=== PATIENT | male | born 1955 | race Caucasian/White ===

== ENCOUNTER 2018-10-07 15:38 | Inpatient (IN) | payer OTHER ==
[2018-10-07 17:52] VITALS: BMI 32.3
--- NOTE | 2018-10-07 19:45 | HP ---
CIWA Score Nausea/Vomitin Muscle Tremors: 4-Moderate,w/Arms Extend Anxiety: 2 Agitation: 3 Paroxysmal Sweats: 2 Orientation: 0-Oriented Tacttile Disturbances: 0-None Auditory Disturbances: 0-None Visual Disturbances: 0-None Headache: 0-None Present CIWA-Ar Total Score: 13 - Admission Criteria OASAS Guidelines: Admission for Medically Managed Detox: Requires at least one of the followin. CIWA greater than 12 2. Seizures within the past 24 hours 3. Delirium tremens within the past 24 hours 4. Hallucinations within the past 24 hours 5. Acute intervention needed for co occurring medical disorder 6. Acute intervention needed for co occurring psychiatric disorder 7. Severe withdrawal that cannot be handled at a lower level of care (continued vomiting, continued diarrhea, abnormal vital signs) requiring intravenous medication and/or fluids 8. Admission ROS [facility] Chief Complaint: Here for alcohol detox. Went to [facility] earlier today but could get admission and so came here for detox. 63 yo with h/o asthma, and ? cancer, ? CAD (does not know details) not taking any meds now. Drinking heavily for the last 3 years- alcohol- 2 pints/day, lachelle, no h/o seizures, no DT's 4 cigarettes/day denies other drug use DUR- no controlled meds Utox- neg, JOE- 0 Allergies/Adverse Reactions: Allergies Allergy/AdvReac Type Severity Reaction Status Date / Time No Known Allergies Allergy Verified 10/07/18 19:44 Exam Limitations: No Limitations - Ebola screening Have you traveled outside of the country in the last 21 days: No Have you had contact with anyone from an Ebola affected area: No Have you been sick,other than usual withdrawal symptoms: No Do you have a fever: No - Review of Systems Constitutional: No Symptoms Reported EENT: reports: No Symptoms Reported Respiratory: reports: No Symptoms reported Cardiac: reports: No Symptoms Reported GI: reports: No Symptoms Reported : reports: No Symptoms Reported Musculoskeletal: reports: No Symptoms Reported Integumentary: reports: No Symptoms Reported Neuro: reports: No Symptoms reported Endocrine: reports: No Symptoms Reported Hematology: reports: No Symptoms Reported Psychiatric: reports: No Sypmtoms Reported Other Systems: Reviewed and Negative Patient History - Patient Medical History Hx Asthma: Yes Hx Cancer: Yes (pt does not know details) Hx Cardiac Disorders: Yes (pt does not know details) Hx Hypertension: No Hx Seizures: No Hx Renal Disease (ESRD): No Hx Thyroid Disease: No Hx Human Immunodeficiency Virus (HIV): No Hx Hepatitis C: No Hx Depression: No Hx Suicide Attempt: No Hx Bipolar Disorder: No Hx Schizophrenia: No - Patient Surgical History Other Surgical History: hernia - PPD History Previous Implant?: Yes Documented Results: Negative w/o proof PPD to be Administered?: Yes - Smoking Cessation Smoking history: Current every day smoker Have you smoked in the past 12 months: Yes Aproximately how many cigarettes per day: 4 Hx Chewing Tobacco Use: Yes Initiated information on smoking cessation: Yes 'Breaking Loose' booklet given: 10/07/18 - Substance & Tx. History Hx Alcohol Use: Yes Hx Substance Use: No Substance Use Type: Alcohol Hx Substance Use Treatment: Yes Family Disease History - Family Disease History Family History: Denies (pt does not know) Admission Physical Exam BHS - Vital Signs Vital Signs: Vital Signs - 24 hr 10/07/18 17:49 Temperature 99 F Pulse Rate 102 H Respiratory 18 Rate Blood Pressure 139/80 - Physical General Appearance: Yes: Appropriately Dressed HEENTM: Yes: Within Normal Limits Respiratory: Yes: Within Normal Limits, Lungs Clear Neck: Yes: Within Normal Limits Cardiology: Yes: Within Normal Limits, S1, S2 Abdominal: Yes: Non Tender, Organomegaly, Distended Back: Yes: Within Normal Limits Musculoskeletal: Yes: Within Normal Limits Extremities: Yes: Within Normal Limits Neurological: Yes: Within Normal Limits, tannery gummer II-XII NML intact Integumentary: Yes: Within Normal Limits Lymphatic: Yes: Within Normal Limits - Diagnostic (1) Alcohol use disorder Current Visit: Yes Status: Acute (2) Asthma Current Visit: Yes Status: Acute (3) Tobacco use disorder Current Visit: Yes Status: Acute BHS Breath Alcohol Content Breath Alcohol Content: 0 Urine Drug Screen - Results Drug Screen Negative: Yes
[2018-10-07] MEDS ORDERED: IBUPROFEN 400 MG TABLET (FP) PO PRN (19:53)
[2018-10-07] MEDS ORDERED: MENTHOL/PHENOL 1 EACH UD MM PRN (19:53)
[2018-10-07] MEDS ORDERED: LOPERAMIDE HCL 2 MG CAPSULE PO PRN (19:53)
[2018-10-07] MEDS ORDERED: guaiFENesin/D-METHORPHAN HB 10 ML UNIT-DOSE CUPS PO PRN (19:53)
[2018-10-07] MEDS ORDERED: MAGNESIUM CITRATE 300 ML BOTTLE PO PRN (19:53)
[2018-10-07] MEDS ORDERED: MAG HYDROX/AL HYDROX/SIMETH 30 ML UNIT-DOSE CUP PO PRN (19:53)
[2018-10-07] MEDS ORDERED: P-EPHED 60MG/TRIPROLIDI 2.5MG TABLET PO PRN (19:53)
[2018-10-07] MEDS ORDERED: ACETAMINOPHEN 325 MG TABLET (FP) PO PRN (19:53)
[2018-10-07] MEDS ORDERED: MAGNESIUM HYDROX 2400MG/30ML ORAL SUSPENSION 30 ML CUP PO PRN (19:53)
[2018-10-07] MEDS ORDERED: chlordiazePOXIDE HCL 25 MG CAPSULE PO ONE (19:55)
[2018-10-07] MEDS ORDERED: chlordiazePOXIDE HCL 25 MG CAPSULE PO PRN (19:55)
[2018-10-07] MEDS: chlordiazePOXIDE HCL 25 MG CAPSULE PO SCH (22:31)
[2018-10-07] MEDS: THIAMINE HCL 100 MG TABLET (FP) PO SCH (22:31)
[2018-10-08] MEDS: chlordiazePOXIDE HCL 25 MG CAPSULE PO SCH ×4 (05:53→22:01)
[2018-10-08] MEDS: PRENATAL VITAMINS W/ FOLIC ACID TABLET (FP) PO SCH (09:15)
[2018-10-08] MEDS ORDERED: NICOTINE 7 MG/24 HOURS TOPICAL PATCH TD SCH (10:00)
[2018-10-08 10:56] LABS: HEMATOCRIT 26.9 % (35.4-49); HEMOGLOBIN 8.1 GM/dL (11.7-16.9); MEAN CELL VOLUME 66.6 fl (80-96); MEAN PLT VOLUME 7.3 fl (7.5-11.1); PLATELET COUNT 347 K/MM3 (134-434); RBC 4.03 M/mm3 (4.00-5.60); RDW 20.1 % (11.9-15.9); WHITE BLOOD COUNT 4.1 K/mm3 (4.0-10.0)
[2018-10-08 11:01] LABS: ALBUMIN 3.7 g/dl (3.4-5.0); ALK PHOS 86 U/L (45-117); ANION GAP 7 MMOL/L (8-16); BILIRUBIN,TOTAL 0.3 mg/dL (0.2-1); BLOOD UREA NITROGEN 29 mg/dL (7-18); CALCIUM 8.5 mg/dL (8.5-10.1); CHLORIDE 103 mmol/L (98-107); CO2 29 mmol/L (21-32); CREATININE 1.6 mg/dL (0.55-1.3); GLUCOSE,RANDOM 113 mg/dL (74-106); POTASSIUM 4.9 mmol/L (3.5-5.1); SGOT/AST 21 U/L (15-37); SGPT/ALT 26 U/L (13-61); SODIUM 139 mmol/L (136-145); TOT PROT 6.6 g/dl (6.4-8.2)
[2018-10-08] MEDS ORDERED: ONDANSETRON *ODT* 4 MG TABLET SL ONE (11:47)
[2018-10-08 12:29] LABS: URINE APPEARANCE CLEAR; URINE BILIRUBIN NEGATIVE (<2.0 mg/dL); URINE COLOR STRAW; URINE GLUCOSE (UA) NEGATIVE (NEGATIVE); URINE KETONE NEGATIVE (NEGATIVE); URINE LEUK ESTERASE NEGATIVE (NEGATIVE); URINE NITRITE NEGATIVE (NEGATIVE); URINE PROTEIN NEGATIVE (NEGATIVE); URINE UROBILINOGEN NEGATIVE mg/dL (0.2-1.0)
--- NOTE | 2018-10-08 12:44 | PN ---
S CIWA - CIWA Score Nausea/Vomitin-Mild Nausea/No Vomiting Muscle Tremors: 4-Moderate,w/Arms Extend Anxiety: 3 Agitation: 2 Paroxysmal Sweats: 1-Minimal Palms Moist Orientation: 0-Oriented Tacttile Disturbances: 0-None Auditory Disturbances: 0-None Visual Disturbances: 0-None Headache: 1-Very Mild CIWA-Ar Total Score: 12 S Progress Note (SOAP) Subjective: patient attended group in the day room "emotional" towards the topic was tearful and vomited zofrain x 1 4 mg patient is doing well ambulate with cane steady gait denies suicidal ideation reported taking psychotropic medication can not remember when was last dose taking psychiatric referral tremor sweating Objective: 10/08/18 12:47 Vital Signs Temperature 96.5 F L 10/08/18 09:07 Pulse Rate 102 H 10/08/18 09:07 Respiratory Rate 18 10/08/18 09:07 Blood Pressure 147/62 10/08/18 09:07 O2 Sat by Pulse Oximetry (%) Laboratory Last Values WBC 4.1 K/mm3 (4.0-10.0) 10/08/18 07:00 RBC 4.03 M/mm3 (4.00-5.60) 10/08/18 07:00 Hgb 8.1 GM/dL (11.7-16.9) L 10/08/18 07:00 Hct 26.9 % (35.4-49) L 10/08/18 07:00 MCV 66.6 fl (80-96) L 10/08/18 07:00 MCH 20.0 pg (25.7-33.7) L 10/08/18 07:00 MCHC 30.0 g/dl (32.0-35.9) L 10/08/18 07:00 RDW 20.1 % (11.9-15.9) H 10/08/18 07:00 Plt Count 347 K/MM3 (134-434) 10/08/18 07:00 MPV 7.3 fl (7.5-11.1) L 10/08/18 07:00 Sodium 139 mmol/L (136-145) 10/08/18 07:00 Potassium 4.9 mmol/L (3.5-5.1) 10/08/18 07:00 Chloride 103 mmol/L (98-107) 10/08/18 07:00 Carbon Dioxide 29 mmol/L (21-32) 10/08/18 07:00 Anion Gap 7 MMOL/L (8-16) L 10/08/18 07:00 BUN 29 mg/dL (7-18) H 10/08/18 07:00 Creatinine 1.6 mg/dL (0.55-1.3) H 10/08/18 07:00 Creat Clearance w eGFR 43.87 (>60) 10/08/18 07:00 Random Glucose 113 mg/dL (74-106) H 10/08/18 07:00 Calcium 8.5 mg/dL (8.5-10.1) 10/08/18 07:00 Total Bilirubin 0.3 mg/dL (0.2-1) 10/08/18 07:00 AST 21 U/L (15-37) 10/08/18 07:00 ALT 26 U/L (13-61) 10/08/18 07:00 Alkaline Phosphatase 86 U/L (45-117) 10/08/18 07:00 Total Protein 6.6 g/dl (6.4-8.2) 10/08/18 07:00 Albumin 3.7 g/dl (3.4-5.0) 10/08/18 07:00 Urine Color Straw 10/08/18 08:00 Urine Appearance Clear 10/08/18 08:00 Urine pH 8.0 (5.0-8.0) 10/08/18 08:00 Ur Specific [place] 1.014 (1.010-1.035) 10/08/18 08:00 Urine Protein Negative (NEGATIVE) 10/08/18 08:00 Urine Glucose (UA) Negative (NEGATIVE) 10/08/18 08:00 Urine Ketones Negative (NEGATIVE) 10/08/18 08:00 Urine Blood Negative (NEGATIVE) 10/08/18 08:00 Urine Nitrite Negative (NEGATIVE) 10/08/18 08:00 Urine Bilirubin Negative (<2.0 mg/dL) 10/08/18 08:00 Urine Urobilinogen Negative mg/dL (0.2-1.0) 10/08/18 08:00 Ur Leukocyte Esterase Negative (NEGATIVE) 10/08/18 08:00 RPR Titer Nonreactive (NONREACTIVE) 10/08/18 07:00 lab noted repeat camp Assessment: 10/08/18 12:49 withdrawal sx depression Plan: continue detox
[2018-10-08] MEDS ORDERED: NICOTINE POLACRILEX 2 MG GUM BUC PRN (13:32)
[2018-10-08] MEDS ORDERED: NICOTINE 7 MG/24 HOURS TOPICAL PATCH TD PRN (13:33)
--- NOTE | 2018-10-08 15:51 | EKG ---
Test Reason : Blood Pressure : / mmHG Vent. Rate : 095 BPM Atrial Rate : 095 BPM P-R Int : 112 ms QRS Dur : 088 ms QT Int : 340 ms P-R-T Axes : 074 041 006 degrees QTc Int : 427 ms NORMAL SINUS RHYTHM WITH SINUS ARRHYTHMIA NONSPECIFIC ST ABNORMALITY ABNORMAL ECG NO PREVIOUS ECGS AVAILABLE Confirmed by Jovanny Rosario ([id number]) on 10/08/2018 3:51:26 PM Referred By: Confirmed By:Jovanny Rosario
[2018-10-08] MEDS: THIAMINE HCL 100 MG TABLET (FP) PO SCH (22:01)
[2018-10-08] MEDS: MELATONIN 5 MG TABLETS PO PRN (22:01)
[2018-10-09] MEDS: chlordiazePOXIDE HCL 25 MG CAPSULE PO SCH ×3 (05:36→16:57)
[2018-10-09] MEDS: PRENATAL VITAMINS W/ FOLIC ACID TABLET (FP) PO SCH (10:11)
[2018-10-09 10:17] LABS: ALBUMIN 3.8 g/dl (3.4-5.0); ALK PHOS 91 U/L (45-117); ANION GAP 7 MMOL/L (8-16); BILIRUBIN,TOTAL 0.2 mg/dL (0.2-1); BLOOD UREA NITROGEN 31 mg/dL (7-18); CALCIUM 8.5 mg/dL (8.5-10.1); CHLORIDE 109 mmol/L (98-107); CO2 28 mmol/L (21-32); CREATININE 1.6 mg/dL (0.55-1.3); GLUCOSE,RANDOM 70 mg/dL (74-106); POTASSIUM 4.6 mmol/L (3.5-5.1); SGOT/AST 16 U/L (15-37); SGPT/ALT 24 U/L (13-61); SODIUM 144 mmol/L (136-145); TOT PROT 6.9 g/dl (6.4-8.2)
--- NOTE | 2018-10-09 11:08 | PN ---
S CIWA - CIWA Score Nausea/Vomitin-No Nausea/No Vomiting Muscle Tremors: 3 Anxiety: 2 Agitation: 1-Slight > Activity Paroxysmal Sweats: 1-Minimal Palms Moist Orientation: 0-Oriented Tacttile Disturbances: 0-None Auditory Disturbances: 0-None Visual Disturbances: 0-None Headache: 1-Very Mild CIWA-Ar Total Score: 8 S Progress Note (SOAP) Subjective: tremor sweating restlessness able to discuss aftercare with staff Objective: 10/09/18 11:07 Vital Signs Temperature 98.2 F 10/09/18 09:31 Pulse Rate 106 H 10/09/18 09:31 Respiratory Rate 18 10/09/18 09:31 Blood Pressure 115/71 10/09/18 09:31 O2 Sat by Pulse Oximetry (%) Laboratory Last Values WBC 4.1 K/mm3 (4.0-10.0) 10/08/18 07:00 RBC 4.03 M/mm3 (4.00-5.60) 10/08/18 07:00 Hgb 8.1 GM/dL (11.7-16.9) L 10/08/18 07:00 Hct 26.9 % (35.4-49) L 10/08/18 07:00 MCV 66.6 fl (80-96) L 10/08/18 07:00 MCH 20.0 pg (25.7-33.7) L 10/08/18 07:00 MCHC 30.0 g/dl (32.0-35.9) L 10/08/18 07:00 RDW 20.1 % (11.9-15.9) H 10/08/18 07:00 Plt Count 347 K/MM3 (134-434) 10/08/18 07:00 MPV 7.3 fl (7.5-11.1) L 10/08/18 07:00 Sodium 144 mmol/L (136-145) 10/09/18 07:00 Potassium 4.6 mmol/L (3.5-5.1) 10/09/18 07:00 Chloride 109 mmol/L (98-107) H 10/09/18 07:00 Carbon Dioxide 28 mmol/L (21-32) 10/09/18 07:00 Anion Gap 7 MMOL/L (8-16) L 10/09/18 07:00 BUN 31 mg/dL (7-18) H 10/09/18 07:00 Creatinine 1.6 mg/dL (0.55-1.3) H 10/09/18 07:00 Creat Clearance w eGFR 43.87 (>60) 10/09/18 07:00 Random Glucose 70 mg/dL (74-106) L 10/09/18 07:00 Calcium 8.5 mg/dL (8.5-10.1) 10/09/18 07:00 Total Bilirubin 0.2 mg/dL (0.2-1) 10/09/18 07:00 AST 16 U/L (15-37) 10/09/18 07:00 ALT 24 U/L (13-61) 10/09/18 07:00 Alkaline Phosphatase 91 U/L (45-117) 10/09/18 07:00 Total Protein 6.9 g/dl (6.4-8.2) 10/09/18 07:00 Albumin 3.8 g/dl (3.4-5.0) 10/09/18 07:00 Urine Color Straw 10/08/18 08:00 Urine Appearance Clear 10/08/18 08:00 Urine pH 8.0 (5.0-8.0) 10/08/18 08:00 Ur Specific [place] 1.014 (1.010-1.035) 10/08/18 08:00 Urine Protein Negative (NEGATIVE) 10/08/18 08:00 Urine Glucose (UA) Negative (NEGATIVE) 10/08/18 08:00 Urine Ketones Negative (NEGATIVE) 10/08/18 08:00 Urine Blood Negative (NEGATIVE) 10/08/18 08:00 Urine Nitrite Negative (NEGATIVE) 10/08/18 08:00 Urine Bilirubin Negative (<2.0 mg/dL) 10/08/18 08:00 Urine Urobilinogen Negative mg/dL (0.2-1.0) 10/08/18 08:00 Ur Leukocyte Esterase Negative (NEGATIVE) 10/08/18 08:00 RPR Titer Nonreactive (NONREACTIVE) 10/08/18 07:00 10/09/18 11:27 lab noted Assessment: 10/09/18 11:30 withdrawal sx Plan: continue detox
[2018-10-09] MEDS ORDERED: ONDANSETRON *ODT* 4 MG TABLET SL ONE (14:03)
--- NOTE | 2018-10-09 14:19 | CONSULT ---
[facility] Psychiatric Consult - Data Date of interview: 10/09/18 Admission source: [facility] Identifying data: This is 63 years old H single childless male residing alone, supported by SSD admitted to [address] [place] [address] for Alcohol dependence. Substance Abuse History: Reports drinking since very young age([age] y6o),heavy drinking since about 3 years ago 2 pints daily. Medical History: Significant for BA,CAD,Stomach cancer(?). Psychiatric History: patient reports first contact with psychiatrist about 5 years ago when he was admitted to [facility] to address severe depression,anxiety,sleeping difficulties.Patient was dx with Depressive disorder and palced on medications.he reports more psychiatric hospitalizations ,most recent was in March 2018 for severe depression,anxiety.He sees psychiatrist in [facility] abuse [facility] mental health office on a monthly basis,currently is on Benadryl 50 mg po hs. Physical/Sexual Abuse/Trauma History: Patient is not willing to discuss. Mental Status Exam - Mental Status Exam Alert and Oriented to: Time, Place, Person Cognitive Function: Grossly Intact Patient Appearance: Well Groomed Mood: Anxious, Irritable Affect: Mood Congruent, Labile Patient Behavior: Cooperative Speech Pattern: Clear Voice Loudness: Normal Thought Process: Goal Oriented Thought Disorder: Not Present Hallucinations: Denies Suicidal Ideation: Denies Homicidal Ideation: Denies Insight/Judgement: Fair Sleep: Fair Appetite: Good Muscle strength/Tone: Normal Gait/Station: Normal Psychiatric Findings - Problem List (Tr[place] 1, 2,3) (1) Alcohol use disorder Current Visit: Yes Status: Chronic (2) Asthma Current Visit: Yes Status: Chronic (3) Tobacco use disorder Current Visit: Yes Status: Chronic - Initial Treatment Plan Initial Treatment Plan: Benadryl 50 mg po hs prn for insomnia.
--- NOTE | 2018-10-09 14:55 | EKG ---
Test Reason : Blood Pressure : / mmHG Vent. Rate : 086 BPM Atrial Rate : 086 BPM P-R Int : 118 ms QRS Dur : 084 ms QT Int : 350 ms P-R-T Axes : 069 025 -02 degrees QTc Int : 418 ms SINUS RHYTHM WITH PREMATURE SUPRAVENTRICULAR COMPLEXES OTHERWISE NORMAL ECG WHEN COMPARED WITH ECG OF 07-OCT-2018 23:30, PREMATURE SUPRAVENTRICULAR COMPLEXES ARE NOW PRESENT Confirmed by MARY FLOYD, GALILEA ([id number]) on 10/09/2018 2:54:59 PM Referred By: Confirmed By:GALILEA HERNANDEZ MD
[2018-10-09] MEDS: THIAMINE HCL 100 MG TABLET (FP) PO SCH (21:36)
[2018-10-09] MEDS: MELATONIN 5 MG TABLETS PO PRN (21:39)
[2018-10-09] MEDS: ALBUTEROL SO4 8 GM HFA INHALER IH SCH (21:39)
[2018-10-09] MEDS: chlordiazePOXIDE 5 MG CAPSULE PO SCH (22:16)
[2018-10-10] MEDS: chlordiazePOXIDE 5 MG CAPSULE PO SCH ×3 (05:25→17:14)
[2018-10-10] MEDS: PRENATAL VITAMINS W/ FOLIC ACID TABLET (FP) PO SCH (10:08)
[2018-10-10] MEDS: ALBUTEROL SO4 8 GM HFA INHALER IH SCH ×2 (10:08→21:45)
--- NOTE | 2018-10-10 11:47 | PN ---
BHS Progress Note (SOAP) Subjective: feeling better less sweating mild tremor sleep better at night Objective: 10/10/18 11:46 Vital Signs Temperature 96.9 F L 10/10/18 09:14 Pulse Rate 102 H 10/10/18 09:14 Respiratory Rate 18 10/10/18 09:14 Blood Pressure 139/74 10/10/18 09:14 O2 Sat by Pulse Oximetry (%) Laboratory Last Values WBC 4.1 K/mm3 (4.0-10.0) 10/08/18 07:00 RBC 4.03 M/mm3 (4.00-5.60) 10/08/18 07:00 Hgb 8.1 GM/dL (11.7-16.9) L 10/08/18 07:00 Hct 26.9 % (35.4-49) L 10/08/18 07:00 MCV 66.6 fl (80-96) L 10/08/18 07:00 MCH 20.0 pg (25.7-33.7) L 10/08/18 07:00 MCHC 30.0 g/dl (32.0-35.9) L 10/08/18 07:00 RDW 20.1 % (11.9-15.9) H 10/08/18 07:00 Plt Count 347 K/MM3 (134-434) 10/08/18 07:00 MPV 7.3 fl (7.5-11.1) L 10/08/18 07:00 Sodium 144 mmol/L (136-145) 10/09/18 07:00 Potassium 4.6 mmol/L (3.5-5.1) 10/09/18 07:00 Chloride 109 mmol/L (98-107) H 10/09/18 07:00 Carbon Dioxide 28 mmol/L (21-32) 10/09/18 07:00 Anion Gap 7 MMOL/L (8-16) L 10/09/18 07:00 BUN 31 mg/dL (7-18) H 10/09/18 07:00 Creatinine 1.6 mg/dL (0.55-1.3) H 10/09/18 07:00 Creat Clearance w eGFR 43.87 (>60) 10/09/18 07:00 Random Glucose 70 mg/dL (74-106) L 10/09/18 07:00 Calcium 8.5 mg/dL (8.5-10.1) 10/09/18 07:00 Total Bilirubin 0.2 mg/dL (0.2-1) 10/09/18 07:00 AST 16 U/L (15-37) 10/09/18 07:00 ALT 24 U/L (13-61) 10/09/18 07:00 Alkaline Phosphatase 91 U/L (45-117) 10/09/18 07:00 Total Protein 6.9 g/dl (6.4-8.2) 10/09/18 07:00 Albumin 3.8 g/dl (3.4-5.0) 10/09/18 07:00 Urine Color Straw 10/08/18 08:00 Urine Appearance Clear 10/08/18 08:00 Urine pH 8.0 (5.0-8.0) 10/08/18 08:00 Ur Specific [place] 1.014 (1.010-1.035) 10/08/18 08:00 Urine Protein Negative (NEGATIVE) 10/08/18 08:00 Urine Glucose (UA) Negative (NEGATIVE) 10/08/18 08:00 Urine Ketones Negative (NEGATIVE) 10/08/18 08:00 Urine Blood Negative (NEGATIVE) 10/08/18 08:00 Urine Nitrite Negative (NEGATIVE) 10/08/18 08:00 Urine Bilirubin Negative (<2.0 mg/dL) 10/08/18 08:00 Urine Urobilinogen Negative mg/dL (0.2-1.0) 10/08/18 08:00 Ur Leukocyte Esterase Negative (NEGATIVE) 10/08/18 08:00 RPR Titer Nonreactive (NONREACTIVE) 10/08/18 07:00 lab noted Assessment: 10/10/18 11:47 mild withdrawal sx Plan: continue detox
[2018-10-10] MEDS ORDERED: TRIMETHOBENZAMIDE HCL 300 MG CAPSULE PO PRN (19:16)
[2018-10-10] MEDS ORDERED: TRIMETHOBENZAMIDE HCL 200MG/2ML INJ IM ONE (19:30)
[2018-10-10] MEDS: THIAMINE HCL 100 MG TABLET (FP) PO SCH (21:45)
[2018-10-10] MEDS: chlordiazePOXIDE HCL 10 MG CAPSULE PO SCH (22:01)
[2018-10-11] MEDS: chlordiazePOXIDE HCL 10 MG CAPSULE PO SCH (05:33)
[2018-10-11 06:29] VITALS: BP 119/71; PULSE 88; TEMP 97.9
--- NOTE | 2018-10-11 10:23 | PN ---
BHS Progress Note (SOAP) Subjective: i'm better Objective: 10/11/18 10:19 Vital Signs Temperature 97.9 F 10/11/18 06:29 Pulse Rate 88 10/11/18 06:29 Respiratory Rate 16 10/11/18 06:29 Blood Pressure 119/71 10/11/18 06:29 O2 Sat by Pulse Oximetry (%) Laboratory Tests 10/08/18 10/08/18 10/08/18 07:00 07:00 07:00 WBC 4.1 RBC 4.03 Hgb 8.1 L Hct 26.9 L MCV 66.6 L MCH 20.0 L MCHC 30.0 L RDW 20.1 H Plt Count 347 MPV 7.3 L Sodium 139 Potassium 4.9 Chloride 103 Carbon Dioxide 29 Anion Gap 7 L BUN 29 H Creatinine 1.6 H Creat Clearance w eGFR 43.87 Random Glucose 113 H Calcium 8.5 Total Bilirubin 0.3 AST 21 ALT 26 Alkaline Phosphatase 86 Total Protein 6.6 Albumin 3.7 Urine Color Urine Appearance Urine pH Ur Specific [place] Urine Protein Urine Glucose (UA) Urine Ketones Urine Blood Urine Nitrite Urine Bilirubin Urine Urobilinogen Ur Leukocyte Esterase RPR Titer Nonreactive 10/08/18 10/09/18 08:00 07:00 WBC RBC Hgb Hct MCV MCH MCHC RDW Plt Count MPV Sodium 144 Potassium 4.6 Chloride 109 H Carbon Dioxide 28 Anion Gap 7 L BUN 31 H Creatinine 1.6 H Creat Clearance w eGFR 43.87 Random Glucose 70 L Calcium 8.5 Total Bilirubin 0.2 AST 16 ALT 24 Alkaline Phosphatase 91 Total Protein 6.9 Albumin 3.8 Urine Color Straw Urine Appearance Clear Urine pH 8.0 Ur Specific [place] 1.014 Urine Protein Negative Urine Glucose (UA) Negative Urine Ketones Negative Urine Blood Negative Urine Nitrite Negative Urine Bilirubin Negative Urine Urobilinogen Negative Ur Leukocyte Esterase Negative RPR Titer pt aox3 in nad ambulating Assessment: 10/11/18 10:20 detox completed Plan: detox completed
--- NOTE | 2018-10-11 10:25 | DS ---
[facility] Detox Discharge Summary Admission Date: 10/07/18 Discharge Date: 10/11/18 - History Present History: Alcohol Dependence - Physical Exam Results Vital Signs: Vital Signs Temperature 97.9 F 10/11/18 06:29 Pulse Rate 88 10/11/18 06:29 Respiratory Rate 16 10/11/18 06:29 Blood Pressure 119/71 10/11/18 06:29 O2 Sat by Pulse Oximetry (%) - Treatment Hospital Course: Detox Protocol Followed, Detoxed Safely, Responded well, Discharged Condition Good - Medication Discharge Medications: Ambulatory Orders Albuterol Sulfate Inhaler - [Ventolin HFA Inhaler -] 1 puff IH BID #1 inhaler - Diagnosis (1) Alcohol use disorder Current Visit: Yes Status: Chronic (2) Asthma Current Visit: Yes Status: Chronic Qualifiers: Asthma severity: mild (3) Tobacco use disorder Current Visit: Yes Status: Chronic - AMA Did Patient Leave Against Medical Advice: No
== END 2018-10-11 08:42 | disposition home or self-care (01) | DRG 897 ==
LOC: YASAS 15:38 → Y3N 21:16
PROVIDERS: ADMIT Neuromusculoskeletal Medicine & OMM; ATTEND Neuromusculoskeletal Medicine & OMM
PROC: HZ2ZZZZ Detoxification Services for Substance Abuse Treatment (ICD-10-PCS; principal; 2018-10-07)
DX: F10.230 Alcohol dependence with withdrawal, uncomplicated (principal); F17.210 Nicotine dependence, cigarettes, uncomplicated; F19.24 Other psychoactive substance dependence with psychoactive substance-induced mood disorder; F32.9 Major depressive disorder, single episode, unspecified; J45.909 Unspecified asthma, uncomplicated
CPT/HCPCS: 36415; 80053; 81003; 85027; 86593; 93005; 93010; Q0162

== ENCOUNTER 2019-01-13 13:28 | Inpatient (IN) | payer OTHER ==
[2019-01-13 14:58] VITALS: BMI 31.9
--- NOTE | 2019-01-13 15:35 | HP ---
CIWA Score Nausea/Vomitin-Mild Nausea/No Vomiting Muscle Tremors: 3 Anxiety: 4-Mod. Anxious/Guarded Agitation: 3 Paroxysmal Sweats: 1-Minimal Palms Moist Orientation: 3-Disoriented Date>2 days Tacttile Disturbances: 0-None Auditory Disturbances: 0-None Visual Disturbances: 0-None Headache: 0-None Present CIWA-Ar Total Score: 15 - Admission Criteria OASAS Guidelines: Admission for Medically Managed Detox: Requires at least one of the followin. CIWA greater than 12 2. Seizures within the past 24 hours 3. Delirium tremens within the past 24 hours 4. Hallucinations within the past 24 hours 5. Acute intervention needed for co occurring medical disorder 6. Acute intervention needed for co occurring psychiatric disorder 7. Severe withdrawal that cannot be handled at a lower level of care (continued vomiting, continued diarrhea, abnormal vital signs) requiring intravenous medication and/or fluids 8. Patient presents the following: CIWA greater than 12 Admission Criteria Met: Admission criteria met Admission ROS S - HPI Chief Complaint: alcohol detox Allergies/Adverse Reactions: Allergies Allergy/AdvReac Type Severity Reaction Status Date / Time No Known Allergies Allergy Verified 01/13/19 14:46 History of Present Illness: 63 years old male seeks alcohol detox denies using methadone "cigarette" from street medical history of hypertension asthma and smoke 4-5 cigarettes per day Exam Limitations: No Limitations - Ebola screening Have you traveled outside of the country in the last 21 days: No Have you had contact with anyone from an Ebola affected area: No - Review of Systems Constitutional: Night Sweats, Weight Stable EENT: reports: No Symptoms Reported Respiratory: reports: SOB with Exertion Cardiac: reports: No Symptoms Reported GI: reports: Nausea, Poor Fluid Intake, Indigestion : reports: No Symptoms Reported Musculoskeletal: reports: Back Pain (chronic back pain) Integumentary: reports: No Symptoms Reported Neuro: reports: Tremors Endocrine: reports: No Symptoms Reported Hematology: reports: No Symptoms Reported Psychiatric: reports: Judgement Intact, Mood/Affect Appropiate, Disorientated ( to time of the date) Other Systems: Reviewed and Negative Patient History - Patient Medical History Hx Anemia: No Hx Asthma: Yes Hx Chronic Obstructive Pulmonary Disease (COPD): No Hx Cancer: Yes (pt does not know details) Hx Cardiac Disorders: Yes (pt does not know details) Hx Congestive Heart Failure: No Hx Hypertension: No Hx Hypercholesterolemia: No Hx Pacemaker: No HX Cerebrovascular Accident: No Hx Seizures: No Hx Dementia: No Hx Diabetes: No Hx Gastrointestinal Disorders: No Hx Liver Disease: No Hx Genitourinary Disorders: No Hx Sexually Transmitted Disorders: No Hx Renal Disease (ESRD): No Hx Thyroid Disease: No Hx Human Immunodeficiency Virus (HIV): No Hx Hepatitis C: No Hx Depression: No Hx Suicide Attempt: No Hx Bipolar Disorder: No Hx Schizophrenia: No - Patient Surgical History Past Surgical History: No Hx Neurologic Surgery: No Hx Cataract Extraction: No Hx Cardiac Surgery: No Hx Lung Surgery: No Hx Breast Surgery: No Hx Breast Biopsy: No Hx Abdominal Surgery: No Hx Appendectomy: No Hx Cholecystectomy: No Hx Genitourinary Surgery: No Hx Orthopedic Surgery: No Other Surgical History: hernia 2013 Anesthesia Reaction: No - PPD History Date: 10/09/18 - Smoking Cessation Smoking history: Current every day smoker Have you smoked in the past 12 months: Yes Aproximately how many cigarettes per day: 4 Hx Chewing Tobacco Use: Yes Initiated information on smoking cessation: Yes 'Breaking Loose' booklet given: 01/13/19 - Substance & Tx. History Hx Alcohol Use: Yes Hx Substance Use: No Substance Use Type: Alcohol Hx Substance Use Treatment: Yes (10/2018 [facility] - Substances abused Alcohol Substance route: Oral Frequency: Daily Amount used: 1 [employer] [place] Age of first use: 25 Date of last use: 01/13/19 Family Disease History - Family Disease History Family Disease History: Other: Grandparent (), Father (no contact), Mother () Admission Physical Exam S - Vital Signs Vital Signs: Vital Signs - 24 hr 01/13/19 01/13/19 14:49 15:24 Temperature 98.1 F 98.1 F Pulse Rate 79 79 Respiratory 20 20 Rate Blood Pressure 154/81 154/81 - Physical General Appearance: Yes: Nourished, Moderate Distress, Tremorous, Irritable, Sweating, Anxious HEENTM: Yes: Hearing grossly Normal, Normal ENT Inspection, Normocephalic, Other (shortness of breathe) Respiratory: Yes: Decreased Breath Sounds (right and lower lower lobs), Wheezing , Hyperresonant Neck: Yes: Supple, Trachea in good position Breast: Yes: Breasts Symetrical, No Discharge, No masses Cardiology: Yes: Regular Rhythm, S1, S2 Abdominal: Yes: Non Tender, Soft Genitourinary: Yes: Within Normal Limits Back: Yes: Normal Inspection, Muscle Spasm (chronic back pain) Musculoskeletal: Yes: Gait Steady, Back pain Extremities: Yes: Normal Inspection, Non-Tender, Tremors Neurological: Yes: Alert, Normal Mood/Affect, Normal Response Integumentary: Yes: Warm Lymphatic: Yes: Within Normal Limits - Diagnostic (1) Nicotine dependence Current Visit: Yes Status: Acute Qualifiers: Nicotine product type: cigarettes Substance use status: in withdrawal Qualified Code(s): F17.213 - Nicotine dependence, cigarettes, with withdrawal (2) Alcohol dependence with uncomplicated withdrawal Current Visit: Yes Status: Acute (3) COPD (chronic obstructive pulmonary disease) Current Visit: Yes Status: Chronic Qualifiers: COPD type: emphysema Emphysema type: panlobular Qualified Code(s): J43.1 - Panlobular emphysema (4) Substance induced mood disorder Current Visit: Yes Status: Suspected (5) Asthma Current Visit: Yes Status: Chronic Qualifiers: Asthma severity: mild Asthma persistence: intermittent Asthma complication type: with status asthmaticus Qualified Code(s): J45.22 - Mild intermittent asthma with status asthmaticus Cleared for Admission S - Detox or Rehab S Level of Care: Medically Supervised Detox Regimen/Protocol: Librium Claeared for Rehab Admission: No Breathalyzer - Breathalyzer Breathalyzer: 0 Urine Drug Screen - Test Device Lot number: [id number] Expiration date: 08/09/20 - Control Is test valid?: Yes - Results Drug screen NEGATIVE: No Urine drug screen results: MTD-Methadone Inpatient Rehab Admission - Rehab Decision to Admit Inpatient rehab admission?: No - Initial Determination Are CD services needed?: No Free of communicable disease: No Not in need of hospitalization: No - Rehab Admission Criteria Previous failed treatment: No Poor recovery environment: No Comorbidities: No Lacks judgement: No Patient is meeting Inpatient Rehab admission criteria:: No
[2019-01-13] MEDS ORDERED: IBUPROFEN 400 MG TABLET (FP) PO PRN (15:43)
[2019-01-13] MEDS ORDERED: chlordiazePOXIDE HCL 25 MG CAPSULE PO PRN (15:43)
[2019-01-13] MEDS ORDERED: NICOTINE 14 MG/24 HOURS TOPICAL PATCH TD PRN (15:43)
[2019-01-13] MEDS ORDERED: MAGNESIUM CITRATE 300 ML BOTTLE PO PRN (15:43)
[2019-01-13] MEDS ORDERED: hydrOXYzine PAMOATE 25 MG CAPSULE (FP) PO PRN (15:43)
[2019-01-13] MEDS ORDERED: MENTHOL/PHENOL 1 EACH UD MM PRN (15:43)
[2019-01-13] MEDS ORDERED: NICOTINE POLACRILEX 2 MG GUM BUC PRN (15:43)
[2019-01-13] MEDS ORDERED: BISMUTH SUBSALICYLATE 524 MG/30 ML UD PO PRN (15:43)
[2019-01-13] MEDS ORDERED: MAG HYDROX/AL HYDROX/SIMETH 30 ML UNIT-DOSE CUP PO PRN (15:43)
[2019-01-13] MEDS ORDERED: ACETAMINOPHEN 325 MG TABLET (FP) PO PRN ×2 (15:43)
[2019-01-13] MEDS ORDERED: METHOCARBAMOL 500 MG TABLET PO PRN (15:43)
[2019-01-13] MEDS ORDERED: MAGNESIUM HYDROX 2400MG/30ML ORAL SUSPENSION 30 ML CUP PO PRN (15:43)
[2019-01-13] MEDS ORDERED: ALBUTEROL SO4 0.083% IH SOL 2.5 MG/3 ML VIAL.NEB. NEB PRN (15:48)
[2019-01-13] MEDS: chlordiazePOXIDE HCL 25 MG CAPSULE PO SCH ×2 (16:59→22:02)
[2019-01-13] MEDS: RANITIDINE HCL 150 MG TABLET (FP) PO SCH ×2 (16:59→22:02)
[2019-01-13 19:06] LABS: HEMATOCRIT 27.5 % (35.4-49); HEMOGLOBIN 7.9 GM/dL (11.7-16.9); MCHC 28.9 g/dl (32.0-35.9); MEAN CELL VOLUME 62.5 fl (80-96); MEAN PLT VOLUME 8.4 fl (7.5-11.1); PLATELET COUNT 237 K/MM3 (134-434); RDW 19.4 % (11.9-15.9); WHITE BLOOD COUNT 5.1 K/mm3 (4.0-10.0)
[2019-01-13 19:24] LABS: ALK PHOS 88 U/L (45-117); ANION GAP 7 MMOL/L (8-16); BILIRUBIN,TOTAL 0.2 mg/dL (0.2-1); BLOOD UREA NITROGEN 29 mg/dL (7-18); CALCIUM 8.5 mg/dL (8.5-10.1); CHLORIDE 106 mmol/L (98-107); CO2 28 mmol/L (21-32); CREATININE 1.5 mg/dL (0.55-1.3); GLUCOSE,RANDOM 92 mg/dL (74-106); POTASSIUM 4.3 mmol/L (3.5-5.1); SGOT/AST 23 U/L (15-37); SGPT/ALT 24 U/L (13-61); SODIUM 141 mmol/L (136-145)
[2019-01-13] MEDS: MELATONIN 5 MG TABLETS PO PRN (22:03)
[2019-01-13] MEDS: THIAMINE HCL 100 MG TABLET (FP) PO SCH (22:03)
[2019-01-13] MEDS: BUDESONIDE/FORMETEROL FUMARATE 80/4.5 mcg INHALER IH SCH (23:19)
[2019-01-14] MEDS: chlordiazePOXIDE HCL 25 MG CAPSULE PO SCH ×4 (05:45→22:18)
--- NOTE | 2019-01-14 09:58 | PN ---
S CIWA - CIWA Score Nausea/Vomitin Muscle Tremors: 2 Anxiety: 2 Agitation: 2 Paroxysmal Sweats: 1-Minimal Palms Moist Orientation: 0-Oriented Tacttile Disturbances: 1-Very Mild Itch/Numbness Auditory Disturbances: 1-Very Mild Visual Disturbances: 0-None Headache: 2-Mild CIWA-Ar Total Score: 13 BHS Progress Note (SOAP) Subjective: alert,irritable,anxious,interrupted sleep,tremor,pain in the body Objective: 01/14/19 09:56 Vital Signs Temperature 97.3 F L 01/14/19 08:10 Pulse Rate 82 01/14/19 08:10 Respiratory Rate 20 01/14/19 08:10 Blood Pressure 140/84 01/14/19 08:10 O2 Sat by Pulse Oximetry (%) Laboratory Last Values WBC 5.1 K/mm3 (4.0-10.0) 01/13/19 15:45 RBC 4.40 M/mm3 (4.00-5.60) 01/13/19 15:45 Hgb 7.9 GM/dL (11.7-16.9) L 01/13/19 15:45 Hct 27.5 % (35.4-49) L 01/13/19 15:45 MCV 62.5 fl (80-96) L 01/13/19 15:45 MCH 18.0 pg (25.7-33.7) L 01/13/19 15:45 MCHC 28.9 g/dl (32.0-35.9) L 01/13/19 15:45 RDW 19.4 % (11.9-15.9) H 01/13/19 15:45 Plt Count 237 K/MM3 (134-434) D 01/13/19 15:45 MPV 8.4 fl (7.5-11.1) D 01/13/19 15:45 Sodium 141 mmol/L (136-145) 01/13/19 15:45 Potassium 4.3 mmol/L (3.5-5.1) 01/13/19 15:45 Chloride 106 mmol/L (98-107) 01/13/19 15:45 Carbon Dioxide 28 mmol/L (21-32) 01/13/19 15:45 Anion Gap 7 MMOL/L (8-16) L 01/13/19 15:45 BUN 29 mg/dL (7-18) H 01/13/19 15:45 Creatinine 1.5 mg/dL (0.55-1.3) H 01/13/19 15:45 Creat Clearance w eGFR 47.27 (>60) 01/13/19 15:45 Random Glucose 92 mg/dL (74-106) 01/13/19 15:45 Calcium 8.5 mg/dL (8.5-10.1) 01/13/19 15:45 Total Bilirubin 0.2 mg/dL (0.2-1) 01/13/19 15:45 AST 23 U/L (15-37) 01/13/19 15:45 ALT 24 U/L (13-61) 01/13/19 15:45 Alkaline Phosphatase 88 U/L (45-117) 01/13/19 15:45 Total Protein 7.0 g/dl (6.4-8.2) 01/13/19 15:45 Albumin 4.0 g/dl (3.4-5.0) 01/13/19 15:45 Assessment: 01/14/19 09:56 withdrawal symptom Plan: continue detox,history of anemia,ferrous sulfate 325 mgs po tid,encourage oral fluid,ensure plus 120 mls po bid, repeat cbc,cmp in am
[2019-01-14] MEDS ORDERED: PRENATAL VITAMINS W/ FOLIC ACID TABLET (FP) PO SCH (10:00)
[2019-01-14] MEDS ORDERED: NIFEdipine E.R 60 MG TABLET (UD) PO SCH (10:00)
[2019-01-14] MEDS: RANITIDINE HCL 150 MG TABLET (FP) PO SCH ×2 (10:25→22:18)
[2019-01-14] MEDS: BUDESONIDE/FORMETEROL FUMARATE 80/4.5 mcg INHALER IH SCH ×2 (10:25→22:17)
[2019-01-14] MEDS: FERROUS SO4 325 MG TABLET (FP) PO SCH ×2 (13:00→17:20)
[2019-01-14] MEDS: ONDANSETRON *ODT* 4 MG TABLET SL PRN ×2 (13:22→18:52)
[2019-01-14] MEDS: ALBUTEROL SO4 8 GM HFA INHALER IH PRN (17:22)
[2019-01-14] MEDS ORDERED: TRIMETHOBENZAMIDE HCL 200MG/2ML INJ IM ONE (18:59)
[2019-01-14] MEDS: THIAMINE HCL 100 MG TABLET (FP) PO SCH (22:17)
[2019-01-14] MEDS: MELATONIN 5 MG TABLETS PO PRN (22:18)
[2019-01-15] MEDS: chlordiazePOXIDE HCL 25 MG CAPSULE PO SCH (06:14)
[2019-01-15] MEDS: ALBUTEROL SO4 8 GM HFA INHALER IH PRN (06:16)
[2019-01-15] MEDS: FERROUS SO4 325 MG TABLET (FP) PO SCH (07:24)
[2019-01-15 09:07] VITALS: BP 134/66; PULSE 99; TEMP 98.9
[2019-01-15 12:37] LABS: ALBUMIN 3.8 g/dl (3.4-5.0); ALK PHOS 85 U/L (45-117); ANION GAP 6 MMOL/L (8-16); BILIRUBIN,TOTAL 0.3 mg/dL (0.2-1); BLOOD UREA NITROGEN 35 mg/dL (7-18); CALCIUM 9.2 mg/dL (8.5-10.1); CHLORIDE 104 mmol/L (98-107); CO2 29 mmol/L (21-32); CREATININE 1.5 mg/dL (0.55-1.3); GLUCOSE,RANDOM 103 mg/dL (74-106); POTASSIUM 3.9 mmol/L (3.5-5.1); SGOT/AST 26 U/L (15-37); SGPT/ALT 25 U/L (13-61); SODIUM 139 mmol/L (136-145); TOT PROT 6.9 g/dl (6.4-8.2)
[2019-01-15 12:46] LABS: HEMATOCRIT 26.4 % (35.4-49); HEMOGLOBIN 7.5 GM/dL (11.7-16.9); MCHC 28.2 g/dl (32.0-35.9); MEAN CELL VOLUME 62.5 fl (80-96); MEAN PLT VOLUME 8.5 fl (7.5-11.1); PLATELET COUNT 233 K/MM3 (134-434); RBC 4.23 M/mm3 (4.00-5.60); RDW 19.6 % (11.9-15.9); WHITE BLOOD COUNT 7.5 K/mm3 (4.0-10.0)
[2019-01-15 12:50] LABS: MCH 17.6 pg (25.7-33.7)
--- NOTE | 2019-01-15 15:41 | PN ---
S CIWA - CIWA Score Nausea/Vomitin-No Nausea/No Vomiting Muscle Tremors: 2 Anxiety: 3 Agitation: 2 Paroxysmal Sweats: No Perspiration Orientation: 0-Oriented Tacttile Disturbances: 2-Mild Itch/Numbness/Burn Auditory Disturbances: 2-Mild Harshness/Frighten Visual Disturbances: 0-None Headache: 0-None Present CIWA-Ar Total Score: 11 BHS Progress Note (SOAP) Subjective: Anxious, Interrupted Sleep, Tremors, Body Aches. Objective: PATIENT A & O X 3, OBSERVED AMBULATING ON UNIT UNASSISTED. IN NO ACUTE DISTRESS. 01/15/19 15:42 Vital Signs Temperature 98.9 F 01/15/19 09:07 Pulse Rate 99 H 01/15/19 09:07 Respiratory Rate 20 01/15/19 09:07 Blood Pressure 134/66 01/15/19 09:07 O2 Sat by Pulse Oximetry (%) Laboratory Tests 01/13/19 01/13/19 01/13/19 15:45 15:45 15:45 WBC 5.1 RBC 4.40 Hgb 7.9 L Hct 27.5 L MCV 62.5 L MCH 18.0 L MCHC 28.9 L RDW 19.4 H Plt Count 237 D MPV 8.4 D Sodium 141 Potassium 4.3 Chloride 106 Carbon Dioxide 28 Anion Gap 7 L BUN 29 H Creatinine 1.5 H Creat Clearance w eGFR 47.27 Random Glucose 92 Calcium 8.5 Total Bilirubin 0.2 AST 23 ALT 24 Alkaline Phosphatase 88 Total Protein 7.0 Albumin 4.0 RPR Titer Nonreactive 01/15/19 01/15/19 07:30 07:30 WBC 7.5 RBC 4.23 Hgb 7.5 L Hct 26.4 L MCV 62.5 L MCH 17.6 L MCHC 28.2 L RDW 19.6 H Plt Count 233 MPV 8.5 Sodium 139 Potassium 3.9 Chloride 104 Carbon Dioxide 29 Anion Gap 6 L BUN 35 H Creatinine 1.5 H Creat Clearance w eGFR 47.27 Random Glucose 103 Calcium 9.2 Total Bilirubin 0.3 AST 26 ALT 25 Alkaline Phosphatase 85 Total Protein 6.9 Albumin 3.8 RPR Titer LABS NOTED. Assessment: 01/15/19 15:42 WITHDRAWAL SYMPTOMS. ANEMIA. 01/15/19 15:43 Plan: CONTINUE DETOX. CONTINUE FEOSOL.
--- NOTE | 2019-01-15 15:46 | DS ---
[facility] Detox Discharge Summary Admission Date: 01/13/19 Discharge Date: 01/15/19 - History Present History: Alcohol Dependence Additional Comments: DESPITE EFFORTS BY LUBRICATION TECHNICIAN AND BY NURSING STAFF TO ADDRESS PATIENT'S MEDICAL NEEDS / CONCERNS, PATIENT DOES NOT WISH TO REMAIN TO COMPLETE DETOX REGIMEN. RISKS OF LEAVING DETOX UNIT AGAINST MEDICAL ADVICE AND PRIOR TO COMPLETION OF DETOX REGIMEN EXPLAINED TO PATIENT. PATIENT ADVISED TO GO IMMEDIATELY TO NEAREST ER SHOULD ANY INTOLERABLE WITHDRAWAL / DETOX SYMPTOMS DEVELOP AT ANY TIME. PATIENT ALSO ADVISED TO FOLLOW-UP SOON POSSIBLE WITH ENVIRONMENTAL SERVICES SUPERVISOR FOR ANEMIA NOTED ON DETOX ADMISSION LABORATORY ASSESSMENT. PATIENT VERBALIZED UNDERSTANDING OF ALL INFORMATION / RECOMMENDATIONS PRESENTED TO HIM PRIOR TO DEPARTURE FROM DETOX UNIT. PATIENT LEFT DETOX UNIT BEFORE RESULTS OF REPEAT CBC WERE MADE AVAILABLE. COPIES OF RESULTS OF ALL LAB RESULTS AVAILABLE PRIOR TO TIME IN WHICH PATIENT LEFT DETOX UNIT GIVEN TO PATIENT AT TIME OF DISCHARGE FROM DETOX UNIT. PATIENT DECLINED OFFER OF MEDICATION PRESCRIPTION FOR HOME MEDICATION AT TIME OF DISCHARGE FROM DETOX, NOTING THAT HE CURRENTLY HAS ADEQUATE SUPPLIES OF ALL PRESCRIBED HOME MEDICATIONS AT HOME. PRESCRIPTION FOR FOLLOW-UP FOR FERROUS SULFATE SENT TO PATIENT'S PHARMACY ([facility], [place]) FOR AFTERCARE. Pertinent Past History: Asthma, Cancer (Patient Uncertain About Specific Type), Cardiac Disease ( Patient Uncertain about specific Type). - Physical Exam Results Vital Signs: Vital Signs Temperature 98.9 F 01/15/19 09:07 Pulse Rate 99 H 01/15/19 09:07 Respiratory Rate 20 01/15/19 09:07 Blood Pressure 134/66 01/15/19 09:07 O2 Sat by Pulse Oximetry (%) Pertinent Admission Physical Exam Findings: WITHDRAWAL SYMPTOMS. Laboratory Tests 01/13/19 01/13/19 01/13/19 15:45 15:45 15:45 WBC 5.1 RBC 4.40 Hgb 7.9 L Hct 27.5 L MCV 62.5 L MCH 18.0 L MCHC 28.9 L RDW 19.4 H Plt Count 237 D MPV 8.4 D Sodium 141 Potassium 4.3 Chloride 106 Carbon Dioxide 28 Anion Gap 7 L BUN 29 H Creatinine 1.5 H Creat Clearance w eGFR 47.27 Random Glucose 92 Calcium 8.5 Total Bilirubin 0.2 AST 23 ALT 24 Alkaline Phosphatase 88 Total Protein 7.0 Albumin 4.0 RPR Titer Nonreactive 01/15/19 01/15/19 07:30 07:30 WBC 7.5 RBC 4.23 Hgb 7.5 L Hct 26.4 L MCV 62.5 L MCH 17.6 L MCHC 28.2 L RDW 19.6 H Plt Count 233 MPV 8.5 Sodium 139 Potassium 3.9 Chloride 104 Carbon Dioxide 29 Anion Gap 6 L BUN 35 H Creatinine 1.5 H Creat Clearance w eGFR 47.27 Random Glucose 103 Calcium 9.2 Total Bilirubin 0.3 AST 26 ALT 25 Alkaline Phosphatase 85 Total Protein 6.9 Albumin 3.8 RPR Titer LABS NOTED. - Treatment Hospital Course: Detoxed Safely - Medication Discharge Medications: Ambulatory Orders Albuterol Sulfate Inhaler - [Ventolin HFA Inhaler -] 1 puff IH BID #1 inhaler Metoprolol Succinate [Toprol Xl -] 50 mg PO DAILY 01/13/19 Nifedipine [Procardia Xl] 60 mg PO DAILY 01/13/19 Ferrous Sulfate [Feosol] 325 mg PO TID 7 Days #21 tablet 01/15/19 - Diagnosis (1) Alcohol dependence with uncomplicated withdrawal Status: Acute (2) Nicotine dependence Status: Acute Qualifiers: Nicotine product type: cigarettes Substance use status: in withdrawal Qualified Code(s): F17.213 - Nicotine dependence, cigarettes, with withdrawal (3) Asthma Status: Chronic Qualifiers: Asthma severity: mild Asthma persistence: intermittent Asthma complication type: with status asthmaticus Qualified Code(s): J45.22 - Mild intermittent asthma with status asthmaticus (4) COPD (chronic obstructive pulmonary disease) Status: Chronic Qualifiers: COPD type: emphysema Emphysema type: panlobular Qualified Code(s): J43.1 - Panlobular emphysema (5) Substance induced mood disorder Status: Suspected (6) Anemia Status: Acute Qualifiers: Anemia type: unspecified type Qualified Code(s): D64.9 - Anemia, unspecified - AMA Did Patient Leave Against Medical Advice: Yes (PATIENT DID NOT WISH TO REMAIN TO COMPLETE DETOX REGIMEN.)
[2019-01-15] MEDS ORDERED: chlordiazePOXIDE HCL 10 MG CAPSULE PO SCH (17:00)
[2019-01-15] MEDS ORDERED: chlordiazePOXIDE HCL 10 MG CAPSULE PO PRN (17:00)
[2019-01-16] MEDS ORDERED: chlordiazePOXIDE HCL 10 MG CAPSULE PO SCH (17:00)
== END 2019-01-15 09:15 | disposition left against medical advice (07) | DRG 894 ==
LOC: YASAS 13:28 → Y6N 16:08
PROVIDERS: ADMIT Surgery; ATTEND Surgery
PROC: HZ2ZZZZ Detoxification Services for Substance Abuse Treatment (ICD-10-PCS; principal; 2019-01-13)
DX: F10.230 Alcohol dependence with withdrawal, uncomplicated (principal); J45.22 Mild intermittent asthma with status asthmaticus; F17.213 Nicotine dependence, cigarettes, with withdrawal; F19.24 Other psychoactive substance dependence with psychoactive substance-induced mood disorder; J43.1 Panlobular emphysema; D64.9 Anemia, unspecified
CPT/HCPCS: 36415; 80053; 85027; 86593; Q0162

== ENCOUNTER 2019-04-24 14:36 | Inpatient (IN) | payer OTHER ==
[2019-04-24 15:58] VITALS: BMI 31.7
--- NOTE | 2019-04-24 17:44 | HP ---
CIWA Score Nausea/Vomitin Muscle Tremors: 4-Moderate,w/Arms Extend Anxiety: 3 Agitation: 4-Moderately Restless Paroxysmal Sweats: 1-Minimal Palms Moist Orientation: 0-Oriented Tacttile Disturbances: 0-None Auditory Disturbances: 0-None Visual Disturbances: 0-None Headache: 0-None Present CIWA-Ar Total Score: 15 - Admission Criteria OASAS Guidelines: Admission for Medically Managed Detox: Requires at least one of the followin. CIWA greater than 12 2. Seizures within the past 24 hours 3. Delirium tremens within the past 24 hours 4. Hallucinations within the past 24 hours 5. Acute intervention needed for co occurring medical disorder 6. Acute intervention needed for co occurring psychiatric disorder 7. Severe withdrawal that cannot be handled at a lower level of care (continued vomiting, continued diarrhea, abnormal vital signs) requiring intravenous medication and/or fluids 8. Patient presents the following: CIWA greater than 12 Admission Criteria Met: Admission criteria met Admission ROS BHS - HPI Chief Complaint: I NEED HELP Allergies/Adverse Reactions: Allergies Allergy/AdvReac Type Severity Reaction Status Date / Time No Known Allergies Allergy Verified 04/24/19 15:50 History of Present Illness: LONGSTANDING HO ETOH USE REFRACTORY TO [place] IN PAST WITHOUT SIG HO ABSTINENCE - Ebola screening Have you traveled outside of the country in the last 21 days: No Have you had contact with anyone from an Ebola affected area: No Do you have a fever: No - Review of Systems Constitutional: Changes in sleep EENT: reports: No Symptoms Reported Respiratory: reports: Shortness of Breath, SOB with Exertion Cardiac: reports: No Symptoms Reported GI: reports: No Symptoms Reported : reports: No Symptoms Reported Musculoskeletal: reports: No Symptoms Reported Integumentary: reports: No Symptoms Reported Neuro: reports: No Symptoms reported Endocrine: reports: No Symptoms Reported Hematology: reports: No Symptoms Reported Psychiatric: reports: Anxious Patient History - Patient Medical History Hx Anemia: No Hx Asthma: Yes Hx Chronic Obstructive Pulmonary Disease (COPD): No Hx Cancer: Yes (pt does not know details) Hx Cardiac Disorders: Yes (pt does not know details) Hx Congestive Heart Failure: No Hx Hypertension: Yes Hx Hypercholesterolemia: No Hx Pacemaker: No HX Cerebrovascular Accident: No Hx Seizures: No Hx Dementia: No Hx Diabetes: No Hx Gastrointestinal Disorders: No Hx Liver Disease: No Hx Genitourinary Disorders: No Hx Sexually Transmitted Disorders: No Hx Renal Disease (ESRD): No Hx Thyroid Disease: No Hx Human Immunodeficiency Virus (HIV): No Hx Hepatitis C: No Hx Depression: No Hx Suicide Attempt: No Hx Bipolar Disorder: No Hx Schizophrenia: No - Patient Surgical History Past Surgical History: No Hx Neurologic Surgery: No Hx Cataract Extraction: No Hx Cardiac Surgery: No Hx Lung Surgery: No Hx Breast Surgery: No Hx Breast Biopsy: No Hx Abdominal Surgery: No Hx Appendectomy: No Hx Cholecystectomy: No Hx Genitourinary Surgery: No Hx Section: No Hx Orthopedic Surgery: No Other Surgical History: hernia 2013 Anesthesia Reaction: No - PPD History Date: 10/09/18 Results: 0 mm - Smoking Cessation Smoking history: Current every day smoker Have you smoked in the past 12 months: Yes Aproximately how many cigarettes per day: 4 Hx Chewing Tobacco Use: Yes Initiated information on smoking cessation: Yes 'Breaking Loose' booklet given: 04/24/19 - Substances abused Alcohol Substance route: Oral Frequency: Daily Amount used: 2 PINT OF ERICK Age of first use: 18 Date of last use: 04/24/19 Family Disease History - Family Disease History Family Disease History: Other: Grandparent (), Father (no contact), Mother () Admission Physical Exam BHS - Vital Signs Vital Signs: Vital Signs - 24 hr 04/24/19 15:48 Temperature 99.8 F H Pulse Rate 91 H Respiratory 18 Rate Blood Pressure 122/76 - Physical General Appearance: Yes: Disheveled, Irritable, Anxious HEENTM: Yes: Within Normal Limits Respiratory: Yes: Lungs Clear, Other (DECREASED BS BL BASES POOR AIR MVMNT) Neck: Yes: Within Normal Limits Breast: Yes: Breast Exam Deferred Cardiology: Yes: Within Normal Limits, Regular Rhythm, Regular Rate, S1, S2 Abdominal: Yes: Within Normal Limits, Normal Bowel Sounds, Non Tender Genitourinary: Yes: Within Normal Limits Back: Yes: Normal Inspection Musculoskeletal: Yes: full range of Motion Extremities: Yes: Normal Capillary Refill, Normal Inspection, Normal Range of Motion Neurological: Yes: irrigation engineer II-XII NML intact, Fully Oriented, Alert, Motor Strength 5/5 Integumentary: Yes: Within Normal Limits - Diagnostic (1) Alcohol dependence with uncomplicated withdrawal Current Visit: No Status: Acute (2) Alcohol use disorder Current Visit: No Status: Chronic (3) Asthma Current Visit: No Status: Chronic Qualifiers: Asthma severity: mild Asthma persistence: intermittent Asthma complication type: with status asthmaticus Qualified Code(s): J45.22 - Mild intermittent asthma with status asthmaticus (4) COPD (chronic obstructive pulmonary disease) Current Visit: No Status: Chronic Qualifiers: COPD type: emphysema Emphysema type: panlobular Qualified Code(s): J43.1 - Panlobular emphysema Breathalyzer - Breathalyzer Breathalyzer: 0 Urine Drug Screen - Test Device Lot number: [id number] Expiration date: 02/07/21 - Control Is test valid?: Yes - Results Drug screen NEGATIVE: No Urine drug screen results: BZO-Benzodiazepines Inpatient Rehab Admission - Rehab Decision to Admit Inpatient rehab admission?: No
[2019-04-24] MEDS ORDERED: BISMUTH SUBSALICYLATE 524 MG/30 ML UD PO PRN (17:45)
[2019-04-24] MEDS ORDERED: MAG HYDROX/AL HYDROX/SIMETH 30 ML UNIT-DOSE CUP PO PRN (17:45)
[2019-04-24] MEDS ORDERED: hydrOXYzine PAMOATE 25 MG CAPSULE (FP) PO PRN (17:45)
[2019-04-24] MEDS ORDERED: ACETAMINOPHEN 325 MG TABLET (FP) PO PRN ×2 (17:45)
[2019-04-24] MEDS ORDERED: METHOCARBAMOL 500 MG TABLET PO PRN (17:45)
[2019-04-24] MEDS ORDERED: MENTHOL/PHENOL 1 EACH UD MM PRN (17:45)
[2019-04-24] MEDS ORDERED: MAGNESIUM HYDROX 2400MG/30ML ORAL SUSPENSION 30 ML CUP PO PRN (17:45)
[2019-04-24] MEDS ORDERED: IBUPROFEN 400 MG TABLET (FP) PO PRN (17:45)
[2019-04-24] MEDS ORDERED: MAGNESIUM CITRATE 300 ML BOTTLE PO PRN (17:45)
[2019-04-24] MEDS ORDERED: ALBUTEROL SO4 2.5/IPRATROPIUM 0.5 INH SOL 3 ML VIAL.NEB. NEB PRN (17:47)
[2019-04-24] MEDS: chlordiazePOXIDE HCL 25 MG CAPSULE PO PRN (19:26)
[2019-04-24] MEDS: ALBUTEROL SO4 0.083% IH SOL 2.5 MG/3 ML VIAL.NEB. NEB PRN (19:32)
[2019-04-24] MEDS: chlordiazePOXIDE HCL 25 MG CAPSULE PO SCH (22:04)
[2019-04-24] MEDS: THIAMINE HCL 100 MG TABLET (FP) PO SCH (22:05)
[2019-04-24] MEDS: MELATONIN 5 MG TABLETS PO PRN (22:06)
[2019-04-25] MEDS: ALBUTEROL SO4 0.083% IH SOL 2.5 MG/3 ML VIAL.NEB. NEB PRN (02:49)
[2019-04-25] MEDS: chlordiazePOXIDE HCL 25 MG CAPSULE PO PRN (02:59)
[2019-04-25] MEDS: guaiFENesin 200 MG/10 ML 10 ML UNIT-DOSE CUPS PO PRN ×2 (03:18→15:04)
[2019-04-25] MEDS: chlordiazePOXIDE HCL 25 MG CAPSULE PO SCH ×4 (05:03→22:29)
[2019-04-25] MEDS: PRENATAL VITAMINS W/ FOLIC ACID TABLET (FP) PO SCH (10:06)
[2019-04-25 10:55] LABS: HEMATOCRIT 32.1 % (35.4-49); HEMOGLOBIN 9.7 GM/dL (11.7-16.9); MCH 22.1 pg (25.7-33.7); MCHC 30.3 g/dl (32.0-35.9); MEAN CELL VOLUME 73.2 fl (80-96); MEAN PLT VOLUME 8.4 fl (7.5-11.1); PLATELET COUNT 239 K/MM3 (134-434); RBC 4.39 M/mm3 (4.00-5.60); RDW 23.4 % (11.9-15.9); WHITE BLOOD COUNT 5.6 K/mm3 (4.0-10.0)
[2019-04-25 11:09] LABS: ALBUMIN 3.5 g/dl (3.4-5.0); BILIRUBIN,TOTAL 0.2 mg/dL (0.2-1); BLOOD UREA NITROGEN 32.3 mg/dL (7-18); CALCIUM 8.6 mg/dL (8.5-10.1); CREATININE 1.6 mg/dL (0.55-1.3); POTASSIUM 4.4 mmol/L (3.5-5.1); TOT PROT 6.9 g/dl (6.4-8.2)
--- NOTE | 2019-04-25 11:29 | EKG ---
Test Reason : Blood Pressure : / mmHG Vent. Rate : 088 BPM Atrial Rate : 088 BPM P-R Int : 116 ms QRS Dur : 086 ms QT Int : 366 ms P-R-T Axes : 072 032 -27 degrees QTc Int : 442 ms NORMAL SINUS RHYTHM T WAVE ABNORMALITY, CONSIDER INFERIOR ISCHEMIA ABNORMAL ECG WHEN COMPARED WITH ECG OF 08-OCT-2018 10:11, PREMATURE SUPRAVENTRICULAR COMPLEXES ARE NO LONGER PRESENT NONSPECIFIC T WAVE ABNORMALITY NOW EVIDENT IN LATERAL LEADS Confirmed by TIARA EDMOND MD ([id number]) on 04/25/2019 11:28:46 AM Referred By: Confirmed By:TIARA EDMOND MD
[2019-04-25] MEDS ORDERED: TRIMETHOBENZAMIDE HCL 200MG/2ML INJ IM ONE (14:35)
--- NOTE | 2019-04-25 14:45 | PN ---
[facility] CIWA - CIWA Score Nausea/Vomitin Muscle Tremors: 2 Anxiety: 3 Agitation: 2 Paroxysmal Sweats: No Perspiration Orientation: 2-Disoriented Date<2 days Tacttile Disturbances: 0-None Auditory Disturbances: 1-Very Mild Visual Disturbances: 0-None Headache: 0-None Present CIWA-Ar Total Score: 15 S Progress Note (SOAP) Subjective: Vomiting, Anxious, Nasal Congestion. Objective: PATIENT A & O X 2 (UNCERTAIN ABOUT CURRENT DAY / DATE). PATIENT OBSERVED AMBULATING ON UNIT UNASSISTED. IN NO ACUTE DISTRESS. 04/25/19 14:42 Vital Signs Temperature 96.8 F L 04/25/19 13:19 Pulse Rate 81 04/25/19 13:19 Respiratory Rate 18 04/25/19 13:19 Blood Pressure 125/60 04/25/19 13:19 O2 Sat by Pulse Oximetry (%) Laboratory Tests 04/25/19 04/25/19 04/25/19 07:30 07:30 07:30 WBC 5.6 RBC 4.39 Hgb 9.7 L Hct 32.1 L D MCV 73.2 L MCH 22.1 L MCHC 30.3 L RDW 23.4 H Plt Count 239 MPV 8.4 Sodium 142 Potassium 4.4 Chloride 104 Carbon Dioxide 32 Anion Gap 6 L BUN 32.3 H Creatinine 1.6 H Est GFR (CKD-EPI)AfAm 51.99 Est GFR (CKD-EPI)NonAf 44.86 Random Glucose 109 H Calcium 8.6 Total Bilirubin 0.2 AST 23 ALT 41 Alkaline Phosphatase 96 Total Protein 6.9 Albumin 3.5 RPR Titer Nonreactive LABS NOTED. PATIENT HAS BEEN ANEMIC ON PREVIOUS ADMISSIONS. 04/25/19 14:46 Assessment: 04/25/19 14:41 WITHDRAWAL SYMPTOMS. ANEMIA. AZOTEMIA. Plan: CONTINUE DETOX. INCREASE DAILY PO WATER INTAKE. FEOSOL, 325 MG PO TIDCM FOR ANEMIA NOTED ON DETOX ADMISSION LABORATORY ASSESSMENT. REPEAT CBC ON 04/27/2019 TO SEE IF ANY CHANGE IN ANEMIA FROM DETOX ADMISSION. TIGAN IM X 1 DOSE NOW FOR VOMITING. PRN ZOFRAN SL FOR SUBSEQUENT NAUSEA / VOMITING (TIGAN NOT RECOMMENDED FOR LONG- TERM USE DUE TO POSSIBLE EFFECT OF INCREASING CREATININE LEVEL). D/C MAGNESIUM-CONTAINING MEDS. FOR ABNORMAL ADMISSION RENAL LAB VALUES.
[2019-04-25] MEDS: FERROUS SO4 325 MG TABLET (FP) PO SCH (17:41)
[2019-04-25] MEDS ORDERED: TRIMETHOBENZAMIDE HCL 200MG/2ML INJ IM PRN (22:00)
[2019-04-25] MEDS: FLUTICASONE PROP 0.05% 16 GM NASAL SPRAY NS SCH (22:28)
[2019-04-25] MEDS: THIAMINE HCL 100 MG TABLET (FP) PO SCH (22:29)
[2019-04-25] MEDS: ONDANSETRON *ODT* 4 MG TABLET SL PRN (22:29)
[2019-04-25] MEDS: MELATONIN 5 MG TABLETS PO PRN (22:30)
[2019-04-26] MEDS: chlordiazePOXIDE HCL 25 MG CAPSULE PO SCH ×4 (05:45→22:34)
[2019-04-26] MEDS: FERROUS SO4 325 MG TABLET (FP) PO SCH ×3 (07:05→17:28)
[2019-04-26] MEDS: FLUTICASONE PROP 0.05% 16 GM NASAL SPRAY NS SCH ×2 (10:14→22:34)
[2019-04-26] MEDS: PRENATAL VITAMINS W/ FOLIC ACID TABLET (FP) PO SCH (10:14)
[2019-04-26] MEDS: ONDANSETRON *ODT* 4 MG TABLET SL PRN (12:33)
--- NOTE | 2019-04-26 14:32 | PN ---
[facility] CIWA - CIWA Score Nausea/Vomitin-Mild Nausea/No Vomiting Muscle Tremors: None Anxiety: 4-Mod. Anxious/Guarded Agitation: 3 Paroxysmal Sweats: No Perspiration Orientation: 0-Oriented Tacttile Disturbances: 1-Very Mild Itch/Numbness Auditory Disturbances: 1-Very Mild Visual Disturbances: 0-None Headache: 0-None Present CIWA-Ar Total Score: 10 BHS Progress Note (SOAP) Subjective: Anxious, Restless, Nasal Congestion. Patient Reports that Nausea has subsided considerably since yesterday. Objective: PATIENT A & O X 3, OBSERVED AMBULATING ON UNIT UNASSISTED. IN NO ACUTE DISTRESS. 04/26/19 14:30 Vital Signs Temperature 97.9 F 04/26/19 09:44 Pulse Rate 97 H 04/26/19 09:44 Respiratory Rate 18 04/26/19 09:44 Blood Pressure 116/70 04/26/19 09:44 O2 Sat by Pulse Oximetry (%) Laboratory Tests 04/25/19 04/25/19 04/25/19 07:30 07:30 07:30 WBC 5.6 RBC 4.39 Hgb 9.7 L Hct 32.1 L D MCV 73.2 L MCH 22.1 L MCHC 30.3 L RDW 23.4 H Plt Count 239 MPV 8.4 Sodium 142 Potassium 4.4 Chloride 104 Carbon Dioxide 32 Anion Gap 6 L BUN 32.3 H Creatinine 1.6 H Est GFR (CKD-EPI)AfAm 51.99 Est GFR (CKD-EPI)NonAf 44.86 Random Glucose 109 H Calcium 8.6 Total Bilirubin 0.2 AST 23 ALT 41 Alkaline Phosphatase 96 Total Protein 6.9 Albumin 3.5 RPR Titer Nonreactive LABS NOTED. Assessment: 04/26/19 14:31 WITHDRAWAL SYMPTOMS. ANEMIA. AZOTEMIA. 04/26/19 14:31 Plan: CONTINUE DETOX. CONTINUE FEOSOL PO. CBC SCHEDULED FOR TOMORROW AM TO SEE IF ANY CHANGE IN ANEMIA SINCE TIME OF DETOX ADMISSION.
[2019-04-26] MEDS: ALBUTEROL SO4 0.083% IH SOL 2.5 MG/3 ML VIAL.NEB. NEB PRN (21:10)
[2019-04-26] MEDS: THIAMINE HCL 100 MG TABLET (FP) PO SCH (22:34)
[2019-04-27] MEDS ORDERED: chlordiazePOXIDE HCL 10 MG CAPSULE PO PRN
[2019-04-27] MEDS: chlordiazePOXIDE HCL 10 MG CAPSULE PO SCH ×4 (05:18→22:03)
[2019-04-27] MEDS: FERROUS SO4 325 MG TABLET (FP) PO SCH ×3 (07:13→17:31)
[2019-04-27 10:08] LABS: BASO % 0.7 % (0-2.0); EOS % 1.7 % (0-4.5); HEMATOCRIT 33.5 % (35.4-49); HEMOGLOBIN 10.2 GM/dL (11.7-16.9); LYMPH % 17.6 % (8-40); MCH 22.5 pg (25.7-33.7); MCHC 30.6 g/dl (32.0-35.9); MEAN CELL VOLUME 73.6 fl (80-96); MEAN PLT VOLUME 8.4 fl (7.5-11.1); MONO % 7.3 % (3.8-10.2); NEUT % 72.7 % (42.8-82.8); PLATELET COUNT 258 K/MM3 (134-434); RBC 4.55 M/mm3 (4.00-5.60); RDW 23.3 % (11.9-15.9); WHITE BLOOD COUNT 8.8 K/mm3 (4.0-10.0)
[2019-04-27] MEDS: FLUTICASONE PROP 0.05% 16 GM NASAL SPRAY NS SCH ×2 (10:25→21:35)
[2019-04-27] MEDS: PRENATAL VITAMINS W/ FOLIC ACID TABLET (FP) PO SCH (10:26)
--- NOTE | 2019-04-27 12:53 | PN ---
S CIWA - CIWA Score Nausea/Vomitin-No Nausea/No Vomiting Muscle Tremors: 3 Anxiety: 1-Mildly Anxious Agitation: 2 Paroxysmal Sweats: 2 Orientation: 0-Oriented Tacttile Disturbances: 0-None Auditory Disturbances: 0-None Visual Disturbances: 0-None Headache: 0-None Present CIWA-Ar Total Score: 8 S Progress Note (SOAP) Subjective: 64 years old male admitted on 04/24/19 for acute alcohol withdrawal sx management doing well with librium detox regimen fall when up from bed both knees on the ground "I was dizzy but better now" patient denies head injury due to unwitnessed fall protocol #1 and ER evaluation reporting right knee pain when flexion right knee skin intact, redness on knee cap, mild swell tender on palpation Objective: 04/27/19 12:59 Vital Signs Temperature 97.2 F L 04/27/19 09:32 Pulse Rate 90 04/27/19 09:32 Respiratory Rate 18 04/27/19 09:32 Blood Pressure 124/72 04/27/19 09:32 O2 Sat by Pulse Oximetry (%) Laboratory Last Values WBC 8.8 K/mm3 (4.0-10.0) 04/27/19 08:00 RBC 4.55 M/mm3 (4.00-5.60) 04/27/19 08:00 Hgb 10.2 GM/dL (11.7-16.9) L 04/27/19 08:00 Hct 33.5 % (35.4-49) L 04/27/19 08:00 MCV 73.6 fl (80-96) L 04/27/19 08:00 MCH 22.5 pg (25.7-33.7) L 04/27/19 08:00 MCHC 30.6 g/dl (32.0-35.9) L 04/27/19 08:00 RDW 23.3 % (11.9-15.9) H 04/27/19 08:00 Plt Count 258 K/MM3 (134-434) 04/27/19 08:00 MPV 8.4 fl (7.5-11.1) 04/27/19 08:00 Absolute Neuts (auto) 6.4 K/mm3 (1.5-8.0) 04/27/19 08:00 Neutrophils % 72.7 % (42.8-82.8) 04/27/19 08:00 Lymphocytes % 17.6 % (8-40) 04/27/19 08:00 Monocytes % 7.3 % (3.8-10.2) 04/27/19 08:00 Eosinophils % 1.7 % (0-4.5) 04/27/19 08:00 Basophils % 0.7 % (0-2.0) 04/27/19 08:00 Nucleated RBC % 0 % (0-0) 04/27/19 08:00 Sodium 142 mmol/L (136-145) 04/25/19 07:30 Potassium 4.4 mmol/L (3.5-5.1) 04/25/19 07:30 Chloride 104 mmol/L (98-107) 04/25/19 07:30 Carbon Dioxide 32 mmol/L (21-32) 04/25/19 07:30 Anion Gap 6 MMOL/L (8-16) L 04/25/19 07:30 BUN 32.3 mg/dL (7-18) H 04/25/19 07:30 Creatinine 1.6 mg/dL (0.55-1.3) H 04/25/19 07:30 Est GFR (CKD-EPI)AfAm 51.99 04/25/19 07:30 Est GFR (CKD-EPI)NonAf 44.86 04/25/19 07:30 Random Glucose 109 mg/dL (74-106) H 04/25/19 07:30 Calcium 8.6 mg/dL (8.5-10.1) 04/25/19 07:30 Total Bilirubin 0.2 mg/dL (0.2-1) 04/25/19 07:30 AST 23 U/L (15-37) 04/25/19 07:30 ALT 41 U/L (13-61) 04/25/19 07:30 Alkaline Phosphatase 96 U/L (45-117) 04/25/19 07:30 Total Protein 6.9 g/dl (6.4-8.2) 04/25/19 07:30 Albumin 3.5 g/dl (3.4-5.0) 04/25/19 07:30 RPR Titer Nonreactive (NONREACTIVE) 04/25/19 07:30 lab noted Assessment: 04/27/19 12:59 alcohol withdrawal sx alert oriented x 3 [id number] [place] Plan: continue librium detox regimen information provided to ER Dr. Regan chart reviewed that the patient had negative right knee x ray currently treating for asthma episode in the ER that the patient had frequent asthma attack last episode 01/2019 treated with cortisonsteroid proposition: return to [facility] alcohol detox
[2019-04-27] MEDS: THIAMINE HCL 100 MG TABLET (FP) PO SCH (21:35)
[2019-04-27] MEDS: MELATONIN 5 MG TABLETS PO PRN (21:35)
[2019-04-27 22:35] VITALS: BP 133/78; PULSE 105; TEMP 98.8
--- NOTE | 2019-04-27 23:02 | PN ---
[facility] Progress Note Note: Patient fell backwards to the floor in front of the dining room and hit his head. As per the staff at the nursing station, oswaldo reportedly heard noise of something hitting the floor and rushed to the area. They reported that patient became agitated and confused. Fall was unwitnessed by staff. Patient is to be transferred to ER for further evaluation. Endorsed to Dr. Mathis Vital Signs Temperature 98.8 F 04/27/19 22:33 Pulse Rate 105 H 04/27/19 22:33 Respiratory Rate 16 04/27/19 22:33 Blood Pressure 133/78 04/27/19 22:33 O2 Sat by Pulse Oximetry (%) PHYSICAL EXAMINATION GENERAL: Very confused and agitated. Unable to to complete physical examination because patient keep getting up. Slurring his words, difficult to understand. HEENT: Normocephalic. No external lesion noted. PERRLA, extraocular movements intact, Nares patent. Moist mucous membrane NECK: Normal range of motion, supple without lymphadenopathy, JVD, or masses. MUSCULOSKELETAL: Normal range of motion at all joints. No bony deformities or tenderness. No CVA tenderness. UPPER EXTREMITIES: 2+ pulses, warm, well-perfused. No cyanosis. No clubbing. No peripheral edema. LOWER EXTREMITIES: 2+ pulses, warm, well-perfused. No calf tenderness. No peripheral edema. NEUROLOGICAL: Cranial nerves II-XII intact. Incoherent speech. Wobbly gait. PSYCHIATRIC: Incoherent and poor insight SKIN: Warm to touch. No rashes or lesions noted. Normal capillary refill. ACTION: Transfer to ER
[2019-04-28] MEDS ORDERED: chlordiazePOXIDE HCL 10 MG CAPSULE PO SCH (05:00)
[2019-04-28] MEDS ORDERED: predniSONE 20 MG TABLET (UD) PO ONE (07:00)
[2019-04-29] MEDS ORDERED: chlordiazePOXIDE HCL 10 MG CAPSULE PO ONE (05:00)
[2019-04-29] MEDS ORDERED: predniSONE 20 MG TABLET (UD) PO SCH ×2 (07:00)
== END 2019-04-27 23:59 | disposition short-term general hospital (02) | DRG 897 ==
LOC: YASAS 14:36 → Y3N 18:59
PROVIDERS: ADMIT Surgery; ATTEND Surgery
PROC: HZ2ZZZZ Detoxification Services for Substance Abuse Treatment (ICD-10-PCS; principal; 2019-04-24)
DX: F10.230 Alcohol dependence with withdrawal, uncomplicated (principal); J45.22 Mild intermittent asthma with status asthmaticus; F17.210 Nicotine dependence, cigarettes, uncomplicated; I10 Essential (primary) hypertension; D64.9 Anemia, unspecified; J43.1 Panlobular emphysema; R41.0 Disorientation, unspecified; R45.1 Restlessness and agitation; R47.81 Slurred speech; M25.561 Pain in right knee; W18.39XA Other fall on same level, initial encounter; Z91.81 History of falling; Y93.9 Activity, unspecified; Y92.238 Other place in hospital as the place of occurrence of the external cause
CPT/HCPCS: 36415; 80053; 85025; 85027; 86593; 93005; 93010; 94640; Q0162

== ENCOUNTER 2019-04-27 09:25 | Emergency (ER) | payer OTHER ==
--- NOTE | 2019-04-27 09:28 | PDOC ---
Attending Attestation - Resident Resident Name: RogelioJonah Gonzalez - HPI HPI: 04/27/19 10:59 Pt presents to the ED complaining of R knee pain after mechanical slip and fall. Patient was watching TV in a chair and slid from the chair on to his right knee. Denies other injuries. Specifically denies hitting his head. No LOC. Patient has a history of asthma without recent intubations or hospitalizations and is also complaining of wheezing and shortness of breath consistent with prior asthma attacks that started today. - Physicial Exam PE: 04/27/19 11:12 Agree with resident exam. Patient is alert and oriented x 3 and in no acute distress. Lung exam: + wheezes, + slightly decreased air entry, speaking in complete sentences. R knee: slightly red, minimally tender on the lateral aspect of the knee with no tenderness over the tibial plateau, full ROM. - Medical Decision Making 04/27/19 11:17 Pt presents to the ED after mechanical fall onto his R knee. xRay checked to rule out fracture and is negative. No LOC or head trauma, patient denies hitting head--no concern for intracranial injury or indication for head CT. + wheezing consistent with asthma. Will treat with nebs and steroids and reassess.
--- NOTE | 2019-04-27 09:49 | PDOC ---
History of Present Illness - General Chief Complaint: Injury Stated Complaint: FALL Time Seen by Provider: 04/27/19 09:27 - History of Present Illness Initial Comments: 04/27/19 09:49 64 y/o M hx of Asthma, HLD and HTN, presents to the ED from [facility] after a fall. He was sitting in a chair watching TV this morning when he nodded off to sleep and fell. the fall was unwitnessed.He fell to is knees with his right knee taking most of the impact. He denies falling on either side or hitting his hea. He did not have any LOC after the fall and was able to ambulate after the incident. He currently denies pain in any other area, headache, numbness, paresthesia, blurry vision, weakness, vertigo or lightheadedness. He endorses shortness of breath and pain in his right knee. 04/27/19 10:49 Past History - Past Medical History Allergies/Adverse Reactions: Allergies Allergy/AdvReac Type Severity Reaction Status Date / Time No Known Allergies Allergy Verified 04/27/19 09:51 Home Medications: Ambulatory Orders Albuterol Sulfate Inhaler - [Ventolin HFA Inhaler -] 1 puff IH BID #1 inhaler Metoprolol Succinate [Toprol Xl -] 50 mg PO DAILY 01/13/19 Nifedipine [Procardia Xl] 60 mg PO DAILY 01/13/19 Ferrous Sulfate [Feosol] 325 mg PO TID 7 Days #21 tablet 01/15/19 Albuterol Sulfate Inhaler - [Ventolin Hfa Inhaler -] 1 - 2 inh PO Q4H #1 inhaler 04/27/19 Albuterol Sulfate Inhaler - [Ventolin Hfa Inhaler -] 1 - 2 inh PO Q4H #1 inhaler 04/27/19 predniSONE [Deltasone -] 40 mg PO DAILY #14 tablet 04/27/19 predniSONE [Deltasone -] 40 mg PO DAILY 5 Days #10 tablet 04/27/19 Anemia: No Asthma: Yes Cancer: Yes (pt does not know details) Cardiac Disorders: Yes (pt does not know details) CVA: No COPD: No CHF: No Dementia: No Diabetes: No GI Disorders: No Disorders: No HTN: Yes Hypercholesterolemia: No Kidney Stones: No Liver Disease: No Seizures: No Thyroid Disease: No - Surgical History Abdominal Surgery: No Appendectomy: No Cardiac Surgery: No Cholecystectomy: No Lung Surgery: No Neurologic Surgery: No Orthopedic Surgery: No - Reproductive History Testicular Surgery: No - Suicide/Smoking/Psychosocial Hx Smoking History: Current every day smoker Have you smoked in the past 12 months: Yes Number of Cigarettes Smoked Daily: 4 'Breaking Loose' booklet given: 04/24/19 Hx Alcohol Use: Yes Drug/Substance Use Hx: No Substance Use Type: Alcohol Hx Substance Use Treatment: No Review of Systems - Review of Systems Constitutional: No: Chills, Fever HEENTM: No: Blurred Vision, Tearing Respiratory: Yes: Shortness of Breath Cardiac (ROS): No: Chest Pain, Lightheadedness ABD/GI: No: Diarrhea, Nausea : No: Burning, Dysuria, Hematuria Musculoskeletal: Yes: Back Pain Neurological: Yes: Symptoms reported *Physical Exam - Physical Exam General Appearance: Yes: Nourished. No: Apparent Distress HEENT: positive: EOMI. negative: Scleral Icterus (R), Scleral Icterus (L) Neck: positive: Trachea midline, Supple Respiratory/Chest: positive: Wheezing. negative: Chest Tender, Lungs Clear, Crackles, Rales Cardiovascular: positive: Regular Rhythm, Regular Rate, S1, S2 Gastrointestinal/Abdominal: positive: Normal Bowel Sounds, Protuberent. negative: Pulsatile Mass, Guarding, Tenderness Musculoskeletal: positive: Normal Inspection. negative: CVA Tenderness Extremity: positive: Normal Capillary Refill, Normal Inspection, Normal Range of Motion, Pelvis Stable, Other (right knee looks erythematous. not swollen in comparison to the left, able to bend his knee) Neurologic: positive: laborer rags II-XII NML intact, Fully Oriented, Alert, Normal Mood/ Affect, Normal Response Medical Decision Making - Medical Decision Making 04/27/19 10:56 64 y/o M hx of Asthma, HLD and HTN, presents to the ED from [facility] after a fall. Labs/Imaging/meds Imaging: right knee x-ray (3pos) Meds: albuterol neb x4 q15m for wheezing and tachypnea Prednisone 60mg PO 04/27/19 11:28 Pt still tachypneic after 4 duoneb treatments. Albuterol (solo) tx ordered. In addition to scheduled 10mg Librium he gets at [facility] *DC/Admit/Observation/Transfer Diagnosis at time of Disposition: Injury, knee Qualifiers: Encounter type: initial encounter Laterality: right Qualified Code(s): S89.91XA - Unspecified injury of right lower leg, initial encounter - Discharge Dispostion Disposition: HOME Decision to Admit order: No - Prescriptions Prescriptions: Albuterol Sulfate Inhaler - [Ventolin Hfa Inhaler -] 1 - 2 inh PO Q4H #1 inhaler Albuterol Sulfate Inhaler - [Ventolin Hfa Inhaler -] 1 - 2 inh PO Q4H #1 inhaler predniSONE [Deltasone -] 40 mg PO DAILY #14 tablet predniSONE [Deltasone -] 40 mg PO DAILY 5 Days #10 tablet - Referrals - Patient Instructions Printed Discharge Instructions: How to Prevent Falls Additional Instructions: You were seen in the ED for a fall an swelling in your right knee. you right knee x-ray showed no fractures. you were equally given breathing treatments and a steroid for your shortness of breath and wheezing. You have been prescribed medications that you should take as prescribed at [facility]. It is important that you take and complete your medication course. Return to the ER if any your symptoms (knee pain, shortness of breath,) get worse. If you develop fevers or chills, return as well. - Post Discharge Activity
[2019-04-27 09:53] VITALS: BMI 33.0
[2019-04-27] MEDS ORDERED: ALBUTEROL SO4 2.5/IPRATROPIUM 0.5 INH SOL 3 ML VIAL.NEB. NEB ONE (10:11)
[2019-04-27] MEDS: ALBUTEROL SO4 2.5/IPRATROPIUM 0.5 INH SOL 3 ML VIAL.NEB. NEB SCH ×3 (10:17→11:26)
[2019-04-27] MEDS ORDERED: predniSONE 20 MG TABLET (UD) PO ONE (10:47)
[2019-04-27] MEDS ORDERED: predniSONE 20 MG TABLET (UD) ONE (10:48)
[2019-04-27] MEDS ORDERED: chlordiazePOXIDE HCL 10 MG CAPSULE PO ONE (11:26)
[2019-04-27] MEDS ORDERED: ALBUTEROL SO4 0.083% IH SOL 2.5 MG/3 ML VIAL.NEB. NEB ONE (11:26)
[2019-04-27] MEDS ORDERED: chlordiazePOXIDE 5 MG CAPSULE ONE (11:40)
[2019-04-27] MEDS ORDERED: ONDANSETRON *ODT* 4 MG TABLET SL ONE (13:53)
[2019-04-27] MEDS ORDERED: ONDANSETRON *ODT* 4 MG TABLET ONE (13:56)
[2019-04-27 14:13] VITALS: BP 113/76; PULSE 106; TEMP 97.8
--- NOTE | 2019-04-28 02:53 | PN ---
Teaching Attending Note Name of Resident: Vanesa Chery ATTENDING PHYSICIAN STATEMENT I saw and evaluated the patient. I reviewed the resident's note and discussed the case with the resident. I agree with the resident's findings and plan as documented. SUBJECTIVE: OBJECTIVE: Alert Vital Signs Period Temp Pulse Resp BP Sys/Mathur Pulse Ox Last 24 Hr 97.8 F-98.1 F 82-106 18-28 113-118/67-79 95-100
== END 2019-04-27 14:05 | disposition home or self-care (01) ==
LOC: JER 09:25
PROC: 3E0F7GC Introduction of Other Therapeutic Substance into Respiratory Tract, Via Natural or Artificial Opening (ICD-10-PCS; principal; 2019-04-27)
DX: S89.91XA Unspecified injury of right lower leg, initial encounter (principal); I10 Essential (primary) hypertension; E78.5 Hyperlipidemia, unspecified; J45.909 Unspecified asthma, uncomplicated; F17.210 Nicotine dependence, cigarettes, uncomplicated; R00.0 Tachycardia, unspecified; W07.XXXA Fall from chair, initial encounter; Y93.89 Activity, other specified; Y92.238 Other place in hospital as the place of occurrence of the external cause
CPT/HCPCS: 73562-TC-RT-FY; 94640; 99282-25; Q0162

== ENCOUNTER 2019-04-28 00:06 | Inpatient (IN) | payer OTHER ==
[2019-04-28] MEDS ORDERED: ONDANSETRON 4 MG/2 ML VIAL IVPUSH ONE (01:27)
[2019-04-28] MEDS ORDERED: ONDANSETRON 4 MG/2 ML VIAL ONE (01:30)
[2019-04-28 01:47] LABS: BASO % 0.2 % (0-2.0); HEMATOCRIT 30.3 % (35.4-49); HEMOGLOBIN 9.8 GM/dL (11.7-16.9); LYMPH % 9.3 % (8-40); MCH 23.2 pg (25.7-33.7); MCHC 32.2 g/dl (32.0-35.9); MEAN PLT VOLUME 7.7 fl (7.5-11.1); MONO % 5.7 % (3.8-10.2); NEUT % 84.8 % (42.8-82.8); PLATELET COUNT 279 K/MM3 (134-434); RBC 4.21 M/mm3 (4.00-5.60); RDW 23.6 % (11.9-15.9); WHITE BLOOD COUNT 8.7 K/mm3 (4.0-10.0)
[2019-04-28 02:11] LABS: ALBUMIN 3.7 g/dl (3.4-5.0); BILIRUBIN,TOTAL 0.1 mg/dL (0.2-1); CALCIUM 9.4 mg/dL (8.5-10.1); CREATININE 1.8 mg/dL (0.55-1.3); POTASSIUM 4.8 mmol/L (3.5-5.1); TOT PROT 7.3 g/dl (6.4-8.2)
--- NOTE | 2019-04-28 02:38 | PDOC ---
Documentation entered by Kristine Nichole SCRIBE, acting as scribe for Emelia Ray MD. Emelia Ray MD: This documentation has been prepared by the Dayanara sommers Sammi, SCRIBE, under my direction and personally reviewed by me in its entirety. I confirm that the documentation accurately reflects all work, treatment, procedures, and medical decision making performed by me. History of Present Illness - General Stated Complaint: HEAD INJURY Time Seen by Provider: 04/28/19 00:15 History Source: Patient, EMS Exam Limitations: No Limitations - History of Present Illness Initial Comments: 04/28/19 00:19 The patient is a 41 year old male, with a significant PMH of alcohol abuse, DM, HTN, high cholesterol, who BIBA to the emergency department from [facility] s/p fall with head injury. En route to the ED, the patient began to vomit. The patient vomited again here in the ED and fell off the stretcher onto his knees. The patient has no complaints of pain. Past History - Past Medical History Allergies/Adverse Reactions: Allergies Allergy/AdvReac Type Severity Reaction Status Date / Time No Known Allergies Allergy Verified 04/28/19 00:24 Home Medications: Ambulatory Orders Metoprolol Succinate [Toprol Xl -] 50 mg PO DAILY 01/13/19 Nifedipine [Procardia Xl] 60 mg PO DAILY 01/13/19 Ferrous Sulfate [Feosol] 325 mg PO TID 7 Days #21 tablet 01/15/19 Albuterol Sulfate Inhaler - [Ventolin Hfa Inhaler -] 1 - 2 inh PO Q4H #1 inhaler 04/27/19 predniSONE [Deltasone -] 40 mg PO DAILY #14 tablet 04/27/19 predniSONE [Deltasone -] 40 mg PO DAILY 5 Days #10 tablet 04/27/19 Anemia: No Asthma: Yes Cancer: Yes (pt does not know details) Cardiac Disorders: Yes (pt does not know details) CVA: No COPD: No CHF: No Dementia: No Diabetes: No GI Disorders: No Disorders: No HTN: Yes Hypercholesterolemia: No Kidney Stones: No Liver Disease: No Psychiatric Problems: Yes (etoh abuse.) Seizures: No Thyroid Disease: No - Surgical History Abdominal Surgery: No Appendectomy: No Cardiac Surgery: No Cholecystectomy: No Lung Surgery: No Neurologic Surgery: No Orthopedic Surgery: No - Reproductive History Testicular Surgery: No - Suicide/Smoking/Psychosocial Hx Smoking History: Current every day smoker Have you smoked in the past 12 months: Yes Number of Cigarettes Smoked Daily: 4 'Breaking Loose' booklet given: 04/24/19 Hx Alcohol Use: Yes Drug/Substance Use Hx: No Substance Use Type: Alcohol Hx Substance Use Treatment: No Trauma Specific PMHX - Complaint Specific PMHX Arthritis: No Review of Systems - Review of Systems Comments:: 04/28/19 00:22 GENERAL/CONSTITUTIONAL: No fever or chills. No weakness. HEAD, EYES, EARS, NOSE AND THROAT: No change in vision. No ear pain or discharge. No sore throat. CARDIOVASCULAR: No chest pain or shortness of breath. RESPIRATORY: No cough, wheezing, or hemoptysis. GASTROINTESTINAL: (+)nausea (+)vomiting. No diarrhea or constipation. GENITOURINARY: No dysuria, frequency, or change in urination. MUSCULOSKELETAL: No joint or muscle swelling or pain. No neck or back pain. SKIN: No rash NEUROLOGIC: No headache, vertigo, loss of consciousness, or change in strength/ sensation. *Physical Exam - Vital Signs Last Vital Signs Temp Pulse Resp BP Pulse Ox 98.3 F 103 H 20 145/89 95 04/28/19 00:21 04/28/19 00:21 04/28/19 00:21 04/28/19 00:21 04/28/19 01:35 - Physical Exam Comments: 04/28/19 00:21 GENERAL: Awake, alert, and fully oriented, in no acute distress. Afebrile. HEAD: No signs of trauma EYES: PERRLA, EOMI, sclera anicteric, conjunctiva clear ENT: Auricles normal inspection, hearing grossly normal, nares patent, oropharynx clear without exudates. Moist mucosa NECK: Normal ROM, supple, no lymphadenopathy, JVD, or masses LUNGS: Breath sounds equal, clear to auscultation bilaterally. No wheezes, and no crackles HEART: Regular rate and rhythm, normal S1 and S2, no murmurs, rubs or gallops ABDOMEN: Obese abdomen. Soft, nontender. No guarding, no rebound. No masses. No flank pain. EXTREMITIES: Normal range of motion, no edema. No clubbing or cyanosis. No cords, erythema, or tenderness NEUROLOGICAL: Cranial nerves II through XII grossly intact. Normal speech, normal gait SKIN: Warm, Dry, normal turgor, no rashes or lesions noted. ED Treatment Course - LABORATORY CBC & Chemistry Diagram: 04/28/19 01:12 04/28/19 01:12 - ADDITIONAL ORDERS Additional order review: Laboratory Results 04/28/19 04/28/19 04/28/19 01:12 01:12 01:12 Sodium 143 Potassium 4.8 Chloride 107 Carbon Dioxide 26 Anion Gap 10 BUN 43.0 H Creatinine 1.8 H Est GFR (CKD-EPI)AfAm 45.09 Est GFR (CKD-EPI)NonAf 38.91 Random Glucose 137 H Lactic Acid 2.2 H* Calcium 9.4 Total Bilirubin 0.1 L AST 26 ALT 39 Alkaline Phosphatase 98 Creatine Kinase 251 Troponin I 0.02 Total Protein 7.3 Albumin 3.7 04/28/19 01:12 RBC 4.21 MCV 72.0 L MCHC 32.2 RDW 23.6 H MPV 7.7 Neutrophils % 84.8 H Lymphocytes % 9.3 D Monocytes % 5.7 Eosinophils % 0.0 D Basophils % 0.2 - RADIOLOGY Radiology Studies Ordered: Category Date Time Status HEAD CT WITHOUT CONTRAST [CT] Stat CT Scan 04/28/19 00:22 Taken - Medications Given in the ED: ED Medications Discontinued Medications Generic Name Dose Route Start Last Admin Trade Name Lynette PRN Reason Stop Dose Admin Ondansetron HCl 4 mg 04/28/19 01:27 04/28/19 01:34 Zofran Injection IVPUSH 04/28/19 01:28 4 mg ONCE ONE Administration Medical Decision Making - Medical Decision Making 04/28/19 02:37 Patient Name: KAROLINA MORAES THIS IS A PRELIMINARY REPORT FROM [facility] DATE OF SERVICE: 2019-04-28 00:39:18 IMAGES: [id number] EXAM: HEAD CT WITHOUT CONTRAST HISTORY: Trauma. Alcohol use COMPARISON: None. FINDINGS: The ventricular system is midline and nondilated. The sulcal pattern is normal for the patient's age. There is no bleed, mass, extra-axial fluid collection or mass effect. No skull fracture or skull lesion is identified. The visualized paranasal sinuses and mastoid air cells are clear. IMPRESSION: No evidence of acute pathology 04/28/19 02:37 Patient Name: KAROLINA MORAES THIS IS A PRELIMINARY REPORT FROM [facility] DATE OF SERVICE: 2019-04-28 00:42:42 IMAGES: [id number] EXAM: ABDOMEN \T\ PELVIS CT W/O CONTR HISTORY: Rule out obstruction COMPARISON: None. FINDINGS: Lung bases are clear. The visualized cardiac chambers are normal size and configuration. Normal unenhanced liver, gallbladder, pancreas, spleen, adrenal glands and kidneys. Moderate to large hiatal hernia is noted without gastric inflammation. The abdominal small and large bowel are normal. There is no aortic aneurysm. There is no significant retroperitoneal lymphadenopathy. The pelvic small and large bowel are normal. There is no evidence of appendicitis. The urinary bladder and prostate gland are normal. No pelvic free fluid is identified. There is no significant pelvic lymphadenopathy. Moderate-sized fat-containing right inguinal hernia is noted. IMPRESSION: Mild to large hiatal hernia. Moderate-sized fat-containing right inguinal hernia. No definite acute pathology. 04/28/19 02:53 hospitalist is aware of the patient *DC/Admit/Observation/Transfer Diagnosis at time of Disposition: Alcohol use disorder, Inguinal hernia, Hiatal hernia, Vomiting - Discharge Dispostion Condition at time of disposition: Guarded Decision to Admit order: Yes - Referrals - Patient Instructions - Post Discharge Activity
[2019-04-28] MEDS ORDERED: LACTULOSE 20 GM/30 ML UDC (FOR ORAL USE ONLY) PO ONE (02:43)
[2019-04-28] MEDS ORDERED: SODIUM CHLORIDE 0.9% 500 ML INFUS.BAG IV ONE (02:43)
[2019-04-28] MEDS ORDERED: LACTULOSE 20 GM/30 ML UDC (FOR ORAL USE ONLY) ONE (02:48)
[2019-04-28] MEDS ORDERED: SODIUM CHLORIDE 1,000 ML IV STA (02:57)
--- NOTE | 2019-04-28 03:00 | PN ---
Teaching Attending Note Name of Resident: Sherry Rolle ATTENDING PHYSICIAN STATEMENT I saw and evaluated the patient. I reviewed the resident's note and discussed the case with the resident. I agree with the resident's findings and plan as documented. SUBJECTIVE: Patient is a 41 year old man with a PMH of Alcohol abuse, Tobacco use, NIDDM, HTN and High cholesterol, who [place] [facility] [place]. Fall was unwitnessed. En route to the ER the patient began to vomit. The patient vomited again here in the ER and fell off the stretcher onto his knees. He did not have any LOC after the fall and was able to ambulate after the incident. He currently denies pain in any other area, headache, numbness, paresthesia, blurry vision, weakness, vertigo or lightheadedness. OBJECTIVE: Alert Vital Signs Period Temp Pulse Resp BP Sys/Mathur Pulse Ox Last 24 Hr 98.3 F 103 20 145/89 95-95 HEENT: No Jaundice, eye redness or discharge, PERRLA, EOMI. Normocephalic, atraumatic. External ears are normal and hearing is grossly intact. No nasal discharge. Neck: Supple, nontender. No palpable adenopathy or thyromegaly. No JVD Chest: Good effort. Clear to auscultation and percussion. Heart: Regular. No S3, rub or murmur Abdomen: Obese abdomen, not distended, soft, nontender and no HSM. No rebound or guarding. Normal bowel sounds. Ext: Peripheral pulses intact. No leg edema. Skin: Warm and dry. No petechiae, rash or ecchymosis. Neuro: Alert. Restless; Oriented to person and place; No asterexis or tremors; CN 2-12 grossly intact. Sensation grossly intact in all four extremities and DTR are symmetric. Psych: Appropriate mood and affect. Poor insight. Current Medications Generic Name Dose Route Start Last Admin Trade Name Freq PRN Reason Stop Dose Admin Sodium Chloride 1,000 mls @ 1,000 mls/hr 04/28/19 02:57 Normal Saline - IV 04/28/19 03:56 ASDIR STA Home Medications Medication Instructions Recorded Metoprolol Succinate [Toprol Xl -] 50 mg PO DAILY 01/13/19 Nifedipine [Procardia Xl] 60 mg PO DAILY 01/13/19 Ferrous Sulfate [Feosol] 325 mg PO TID 7 Days #21 tablet 01/15/19 Albuterol Sulfate Inhaler - 1 - 2 inh PO Q4H #1 inhaler 04/27/19 [Ventolin Hfa Inhaler -] predniSONE [Deltasone -] 40 mg PO DAILY #14 tablet 04/27/19 predniSONE [Deltasone -] 40 mg PO DAILY 5 Days #10 tablet 04/27/19 Abnormal Lab Results 04/28/19 04/28/19 04/28/19 01:12 01:12 01:12 Hgb 9.8 L Hct 30.3 L MCV 72.0 L MCH 23.2 L RDW 23.6 H Neutrophils % 84.8 H BUN 43.0 H Creatinine 1.8 H Random Glucose 137 H Lactic Acid 2.2 H* Total Bilirubin 0.1 L ASSESSMENT AND PLAN: 1. Fall - Circumstances surrounding his fall are unclear. Unknown whether he was intoxicated at the time or if he was in withdrawal. No acute pathology noted on noncontrast head CT. Will repeat head CT in 24 hours since vomiting may be related to intracranial pressure. CT abdomen/pelvis without contrast showed mild to large hiatal hernia and moderate-sized fat-containing right inguinal hernia. Will consult surgery for hernia. Lactic acidosis likely due to alcohol - will trend lactic acid while he is being hydrated. Will get alcohol level, urine toxicology, brain MRI, EEG, urinalysis, give IV banana bag and initiate 1 to 1 monitoring. Will implement [facility] librium alcohol withdrawal protocol and do neurochecks. Implement seizure, fall and aspiration precautions. Treat with thiamine and folic acid and monitor electrolytes (Ca,Mg, K,P). Counseled patient about abstaining from alcohol. Will consult it communications specialist and refer to alcohol detox upon discharge. 2. DM For now, we will hold the home diabetes drugs and implement sliding scale insulin regimen. Provide comprehensive diabetes care with patient teaching and counseling about the importance of adherence to prescribed diabetes regimen, euglycemia, eye care and foot care. 3. Tobacco Use Counseled on risks associated with tobacco use. We will provide patient all the necessary assistance to facilitate smoking cessation and prescribe Nicotine patch. 4. CKD? - Has risk factors for CKD and may also be dehydrated. Will monitor urine output as he is hydrated. Avoid nephrotoxic agents such as NSAIDS, aminoglycosides, contrast dyes and certain Alternative medicine products. 5. Low MCV Anemia - Likely multifactorial, but will refer to GI for colonoscopy. Do basic anemia work up including serial stool guaiacs, reticulocyte count and iron studies. Would benefit from Procrit therapy once iron replete. 6. Obesity Counseled on the risks associated with obesity. Will provide patient all the necessary assistance, counseling and positive reinforcement to facilitate weight loss. Consult tank filler. 7. Hypertension - Restart suitable outpatient antihypertensive drugs when clinically appropriate. Revise regimen to ensure [id number] excellent BP control and tariff counsel patient on the injurious effects of uncontrolled hypertension. Nonpharmacologic measures to control hypertension like weight loss , salt restriction and exercise discussed. Importance of adherence to treatment regimen and attainment of normotension emphasized. 8. DVT prophylaxis - SCD. Will avoid heparin until repeat head CT rules out intracranial bleeding 9. Advance directives - Full code
--- NOTE | 2019-04-28 04:20 | HP ---
CHIEF COMPLAINT: Falls, nausea, vomiting PCP: None HISTORY OF PRESENT ILLNESS: Patient is a 64 year old male with PMH of chronic alcohol use, DM, HTN, HLD who BIBEMS from [facility] s/p fall. Pt is slurring his words, very confused and a poor historian. Pt is being treated at [facility] for alcohol detox for the past 3 days. His fall was unwitnessed and it is unknown if patient hit his head. He denies hitting his head, though, and denies LOC. Upon arrival to the ED he began vomiting (nbnb) numerous times. Pt fell once out of stretcher to his knees. He denies any pain. Of note, pt was brought into the ED yesterday for an unwitnessed fall out of his chair while watching TV. He did not hit his head or lose consciousness. His workup was neg and he was sent back to rehab. ER course was notable for: (1) CT head: no acute intracranial pathology (2) CT abd: mild-large hiatal hernia, moderate R inguinal hernia (3) Lactic acid: 2.2 Recent Travel: denies PAST MEDICAL HISTORY: DM HTN HLD PAST SURGICAL HISTORY: denies Social History: Smokin cigarettes per day Alcohol: heavy Drugs: denies Family History: Unable to obtain Allergies No Known Allergies Allergy (Verified 04/28/19 00:24) HOME MEDICATIONS: Home Medications Medication Instructions Recorded Metoprolol Succinate [Toprol Xl -] 50 mg PO DAILY 01/13/19 Nifedipine [Procardia Xl] 60 mg PO DAILY 01/13/19 Ferrous Sulfate [Feosol] 325 mg PO TID 7 Days #21 tablet 01/15/19 Albuterol Sulfate Inhaler - 1 - 2 inh PO Q4H #1 inhaler 04/27/19 [Ventolin Hfa Inhaler -] predniSONE [Deltasone -] 40 mg PO DAILY #14 tablet 04/27/19 predniSONE [Deltasone -] 40 mg PO DAILY 5 Days #10 tablet 04/27/19 REVIEW OF SYSTEMS CONSTITUTIONAL: Absent: fever, chills, diaphoresis, generalized weakness, malaise, loss of appetite, weight change HEENT: Absent: rhinorrhea, nasal congestion, throat pain, throat swelling, difficulty swallowing, mouth swelling, ear pain, eye pain, visual changes CARDIOVASCULAR: Absent: chest pain, syncope, palpitations, irregular heart rate, lightheadedness , peripheral edema RESPIRATORY: Absent: cough, shortness of breath, dyspnea with exertion, orthopnea, wheezing, stridor, hemoptysis GASTROINTESTINAL: Absent: abdominal pain, abdominal distension, nausea, vomiting, diarrhea, constipation, melena, hematochezia GENITOURINARY: Absent: dysuria, frequency, urgency, hesitancy, hematuria, flank pain, genital pain MUSCULOSKELETAL: Absent: myalgia, arthralgia, joint swelling, back pain, neck pain SKIN: Absent: rash, itching, pallor HEMATOLOGIC/IMMUNOLOGIC: Absent: easy bleeding, easy bruising, lymphadenopathy, frequent infections ENDOCRINE: Absent: unexplained weight gain, unexplained weight loss, heat intolerance, cold intolerance NEUROLOGIC: Absent: headache, focal weakness or paresthesias, dizziness, unsteady gait, seizure, mental status changes, bladder or bowel incontinence PSYCHIATRIC: Absent: anxiety, depression, suicidal or homicidal ideation, hallucinations. PHYSICAL EXAMINATION Vital Signs - 24 hr 04/28/19 04/28/19 00:21 01:35 Temperature 98.3 F Pulse Rate 103 H Respiratory 20 Rate Blood Pressure 145/89 O2 Sat by Pulse 95 95 Oximetry (%) GENERAL: A&O x2. Very agitated. Slurring his words, difficult to understand. Very confused and unable to answer questions. HEAD: Normal with no signs of trauma. EYES: Pupils equal, round and reactive to light, extraocular movements intact, sclera anicteric, conjunctiva clear. No lid lag. EARS, NOSE, THROAT: Ears normal, nares patent, oropharynx clear without exudates. Moist mucous membranes. NECK: Normal range of motion, supple without lymphadenopathy, JVD, or masses. LUNGS: Breath sounds equal, clear to auscultation bilaterally. No wheezes, and no crackles. No accessory muscle use. HEART: Regular rate and rhythm, normal S1 and S2 without murmur, rub or gallop. ABDOMEN: Soft, nontender, not distended, normoactive bowel sounds, no guarding, no rebound, no masses. No hepatomegaly or splenomegaly. MUSCULOSKELETAL: Normal range of motion at all joints. No bony deformities or tenderness. No CVA tenderness. UPPER EXTREMITIES: 2+ pulses, warm, well-perfused. No cyanosis. No clubbing. No peripheral edema. LOWER EXTREMITIES: 2+ pulses, warm, well-perfused. No calf tenderness. No peripheral edema. NEUROLOGICAL: Cranial nerves II-XII intact. Normal speech. Wobbly gait. PSYCHIATRIC: Pt is agitated and uncooperative. SKIN: Warm, dry, normal turgor, no rashes or lesions noted, normal capillary refill. Laboratory Results - last 24 hr CBC, BMP 04/28/19 01:12 04/28/19 01:12 ASSESSMENT/PLAN: Patient is a 64 year old male with PMH of chronic alcohol use, DM, HTN, HLD who BIBEMS from [facility] s/p fall. #Fall Likely 2/2 intoxication vs seizure/alcohol withdrawal vs neurologic Placing on 1:1 observation as pt keeps getting up to walk around and is at fall risk Seizure, aspiration, and fall precautions Frequent neuro checks F/u Utox and alcohol level F/u brain MRI for neurologic etiology of falls Consider EEG to monitor for seizures #Alcohol use/withdrawal CIWA: 14 F/u Utox and alcohol level Pt was on librium taper at [facility]. Will cont treatment here: Librium q12h for one day, followed by librium qd. Will give IV thiamine, folate daily Monitor for seizures and other withdrawal symptoms #Elevated lactate Likely 2/2 to vomiting. No signs of infection F/u UA to r/o sepsis #Microcytic anemia - chronic Ordering anemia work-up and coags Consider GI consult and colonoscopy as outpt #FEN IV NS @ 100 ml/hr NPO 2/2 aspiration risk #DVT ppx SCDs #Dispo Monitor 1:1 obs and med-surg Visit type - Emergency Visit Emergency Visit: Yes ED Registration Date: 04/28/19 Care time: The patient presented to the Emergency Department on the above date and was hospitalized for further evaluation of their emergent condition. - New Patient This patient is new to me today: Yes Date on this admission: 04/28/19 - Critical Care Critical Care patient: No ATTENDING PHYSICIAN STATEMENT I saw and evaluated the patient. I reviewed the resident's note and discussed the case with the resident. I agree with the resident's findings and plan as documented. SUBJECTIVE: OBJECTIVE: ASSESSMENT AND PLAN:
[2019-04-28] MEDS: SODIUM CHLORIDE 1,000 ML IV SCH (04:49)
[2019-04-28] MEDS: FOLIC ACID INJECTION - 1 MG, THIAMINE HCL 100 MG, MULTIVIT INJECTION ADULT 10 ML in SOD... IVPB ONE ×2 (05:13→13:28)
[2019-04-28] MEDS: chlordiazePOXIDE HCL 10 MG CAPSULE PO SCH ×3 (07:06→21:18)
[2019-04-28 07:32] LABS: ALBUMIN 3.6 g/dl (3.4-5.0); BILIRUBIN,TOTAL 0.1 mg/dL (0.2-1); BLOOD UREA NITROGEN 37.6 mg/dL (7-18); CALCIUM 9.3 mg/dL (8.5-10.1); CREATININE 1.6 mg/dL (0.55-1.3); MAGNESIUM 2.6 mg/dL (1.8-2.4); POTASSIUM 4.4 mmol/L (3.5-5.1); TOT PROT 6.9 g/dl (6.4-8.2)
[2019-04-28 07:32] LABS: BASO % 0.3 % (0-2.0); EOS % 0.2 % (0-4.5); HEMATOCRIT 30.2 % (35.4-49); HEMOGLOBIN 9.5 GM/dL (11.7-16.9); LYMPH % 15.1 % (8-40); MCH 22.8 pg (25.7-33.7); MCHC 31.4 g/dl (32.0-35.9); MEAN CELL VOLUME 72.6 fl (80-96); MEAN PLT VOLUME 8.3 fl (7.5-11.1); MONO % 8.4 % (3.8-10.2); PLATELET COUNT 264 K/MM3 (134-434); RBC 4.16 M/mm3 (4.00-5.60); RDW 23.5 % (11.9-15.9); WHITE BLOOD COUNT 9.5 K/mm3 (4.0-10.0)
[2019-04-28 07:47] LABS: INR 0.91 (0.83-1.09); PROTHROMBIN TIME (PATIENT) 10.7 SEC (9.7-13.0)
[2019-04-28 07:50] LABS: ACTIVATED PTT 27.2 SECONDS (25.2-36.5)
[2019-04-28] MEDS ORDERED: chlordiazePOXIDE 5 MG CAPSULE ONE ×2 (09:40→21:03)
--- NOTE | 2019-04-28 10:54 | EKG ---
Test Reason : Blood Pressure : / mmHG Vent. Rate : 086 BPM Atrial Rate : 086 BPM P-R Int : 120 ms QRS Dur : 094 ms QT Int : 362 ms P-R-T Axes : 072 026 012 degrees QTc Int : 433 ms SINUS RHYTHM WITH PREMATURE SUPRAVENTRICULAR COMPLEXES SEPTAL INFARCT , AGE UNDETERMINED ABNORMAL ECG WHEN COMPARED WITH ECG OF 24-APR-2019 21:56, PREMATURE SUPRAVENTRICULAR COMPLEXES ARE NOW PRESENT SEPTAL INFARCT IS NOW PRESENT Confirmed by LÁZARO WALLACE MD ([id number]) on 04/28/2019 10:53:47 AM Referred By: Confirmed By:LÁZARO WALLACE MD
[2019-04-28 14:23] VITALS: BMI 30.8
--- NOTE | 2019-04-28 14:43 | PN ---
Teaching Attending Note Name of Resident: Eduardo Clements ATTENDING PHYSICIAN STATEMENT I saw and evaluated the patient. I reviewed the resident's note and discussed the case with the resident. I agree with the resident's findings and plan as documented. SUBJECTIVE: Patient feels hungry and wants to eat. Otherwise, he has no complaints. OBJECTIVE: Vital Signs Period Temp Pulse Resp BP Sys/Mathur Pulse Ox Last 24 Hr 98.2 F-98.3 F 85-103 20-20 126-145/77-89 95-97 HEART: S1S2, RRR LUNGS: Clear ABDOMEN: Soft, non-distended, non-tender, normal BS EXTREMITIES: No edema Laboratory Results - last 24 hr 04/28/19 04/28/19 04/28/19 01:12 01:12 01:12 WBC 8.7 RBC 4.21 Hgb 9.8 L Hct 30.3 L MCV 72.0 L MCH 23.2 L MCHC 32.2 RDW 23.6 H Plt Count 279 MPV 7.7 Absolute Neuts (auto) 7.4 Neutrophils % 84.8 H Lymphocytes % 9.3 D Monocytes % 5.7 Eosinophils % 0.0 D Basophils % 0.2 Nucleated RBC % 0 PT with INR INR PTT (Actin FS) Sodium 143 Potassium 4.8 Chloride 107 Carbon Dioxide 26 Anion Gap 10 BUN 43.0 H Creatinine 1.8 H Est GFR (CKD-EPI)AfAm 45.09 Est GFR (CKD-EPI)NonAf 38.91 Random Glucose 137 H Lactic Acid Calcium 9.4 Magnesium Iron 21 L TIBC 414 Iron Saturation 5 L Unsaturated IBC 393 H Total Bilirubin 0.1 L AST 26 ALT 39 Alkaline Phosphatase 98 Creatine Kinase 251 Creatine Kinase Index 1.1 CK-MB (CK-2) 3.0 Troponin I 0.02 Total Protein 7.3 Albumin 3.7 Vitamin B12 613 Serum Folate 14 Alcohol, Quantitative 04/28/19 04/28/19 04/28/19 01:12 06:31 06:31 WBC 9.5 RBC 4.16 Hgb 9.5 L Hct 30.2 L MCV 72.6 L MCH 22.8 L MCHC 31.4 L RDW 23.5 H Plt Count 264 MPV 8.3 Absolute Neuts (auto) 7.2 Neutrophils % 76.0 Lymphocytes % 15.1 D Monocytes % 8.4 Eosinophils % 0.2 D Basophils % 0.3 Nucleated RBC % 0 PT with INR 10.70 INR 0.91 PTT (Actin FS) 27.2 Sodium Potassium Chloride Carbon Dioxide Anion Gap BUN Creatinine Est GFR (CKD-EPI)AfAm Est GFR (CKD-EPI)NonAf Random Glucose Lactic Acid 2.2 H* Calcium Magnesium Iron TIBC Iron Saturation Unsaturated IBC Total Bilirubin AST ALT Alkaline Phosphatase Creatine Kinase Creatine Kinase Index CK-MB (CK-2) Troponin I Total Protein Albumin Vitamin B12 Serum Folate Alcohol, Quantitative 04/28/19 04/28/19 06:45 07:00 WBC RBC Hgb Hct MCV MCH MCHC RDW Plt Count MPV Absolute Neuts (auto) Neutrophils % Lymphocytes % Monocytes % Eosinophils % Basophils % Nucleated RBC % PT with INR INR PTT (Actin FS) Sodium 143 Potassium 4.4 Chloride 109 H Carbon Dioxide 27 Anion Gap 7 L BUN 37.6 H Creatinine 1.6 H Est GFR (CKD-EPI)AfAm 51.99 Est GFR (CKD-EPI)NonAf 44.86 Random Glucose 117 H Lactic Acid Calcium 9.3 Magnesium 2.6 H Iron TIBC Iron Saturation Unsaturated IBC Total Bilirubin 0.1 L AST 20 ALT 38 Alkaline Phosphatase 90 Creatine Kinase Creatine Kinase Index CK-MB (CK-2) Troponin I Total Protein 6.9 Albumin 3.6 Vitamin B12 Serum Folate Alcohol, Quantitative < 3.0 Current Medications Generic Name Dose Route Start Last Admin Trade Name Freq PRN Reason Stop Dose Admin Chlordiazepoxide HCl 10 mg 04/28/19 07:00 04/28/19 09:43 Librium - PO 10 mg BID AZIZA Administration Sodium Chloride 1,000 mls @ 100 mls/hr 04/28/19 04:30 04/28/19 04:49 Normal Saline - IV Not Given ASDIR [facility] ASSESSMENT AND PLAN: This is a 64 year old man with a history of HTN, hyperlipidemia, type 2 DM, alcohol abuse who was sent to the ED from [facility] after a fall. 1. s/p fall - Alcohol-related, intoxication vs seizure vs withdrawal - MRI of brain is limited secondary to motion and shows no evidence of infarct, mild increased signal in periventricular white matter, increased signal in body of corpus callosum with cystic encephalomalacia 2. Alcohol withdrawal - Continue Librium detox 3. Continuous alcohol abuse - Start thiamine, folic acid, multivitamin 4. Lactic acidemia - Likely secondary to vomiting/dehydration - Continue IV fluid 5. Anemia, microcytic - Chronic - Iron, iron saturation are low; TIBC normal - Check stool occult blood - Will need GI eval - can be done as outpatient 6. HTN - BP ok wthout meds - Monitor BP 7. Hyperlipidemia 8. Type 2 DM - Fingersticks with Novolog sliding scale once he is eating 9. Stage 3 CKD - Stable
--- NOTE | 2019-04-28 18:46 | PN ---
Physical Exam: SUBJECTIVE: Patient seen and examined at bedside this AM. Initially was placed on 1to1 bugt d/c to continuous monitoring. OBJECTIVE: Vital Signs Period Temp Pulse Resp BP Sys/Mathur Pulse Ox Last 24 Hr 98.2 F-98.6 F 85-103 20-20 126-158/77-89 95-99 GENERAL: The patient is awake, alert, and fully oriented, in no acute distress. HEAD: Normal with no signs of trauma. NECK: supple. LUNGS: Breath sounds equal, clear to auscultation bilaterally, no wheezes, no crackles, no accessory muscle use. HEART: Regular rate and rhythm, S1, S2 without murmur, rub or gallop. ABDOMEN: Soft, nontender, distended, no guarding, no rebound. EXTREMITIES: warm, well-perfused, no edema. NEUROLOGICAL: Cranial nerves II through XII grossly intact. Normal speech, gait not observed. PSYCH: Normal mood, normal affect. SKIN: Warm, dry, no rashes or lesions noted Laboratory Results - last 24 hr 04/28/19 04/28/19 04/28/19 01:12 01:12 01:12 WBC 8.7 RBC 4.21 Hgb 9.8 L Hct 30.3 L MCV 72.0 L MCH 23.2 L MCHC 32.2 RDW 23.6 H Plt Count 279 MPV 7.7 Absolute Neuts (auto) 7.4 Neutrophils % 84.8 H Lymphocytes % 9.3 D Monocytes % 5.7 Eosinophils % 0.0 D Basophils % 0.2 Nucleated RBC % 0 PT with INR INR PTT (Actin FS) Sodium 143 Potassium 4.8 Chloride 107 Carbon Dioxide 26 Anion Gap 10 BUN 43.0 H Creatinine 1.8 H Est GFR (CKD-EPI)AfAm 45.09 Est GFR (CKD-EPI)NonAf 38.91 POC Glucometer Random Glucose 137 H Lactic Acid Calcium 9.4 Magnesium Iron 21 L TIBC 414 Iron Saturation 5 L Unsaturated IBC 393 H Total Bilirubin 0.1 L AST 26 ALT 39 Alkaline Phosphatase 98 Creatine Kinase 251 Creatine Kinase Index 1.1 CK-MB (CK-2) 3.0 Troponin I 0.02 Total Protein 7.3 Albumin 3.7 Vitamin B12 613 Serum Folate 14 Alcohol, Quantitative 04/28/19 04/28/19 04/28/19 01:12 06:31 06:31 WBC 9.5 RBC 4.16 Hgb 9.5 L Hct 30.2 L MCV 72.6 L MCH 22.8 L MCHC 31.4 L RDW 23.5 H Plt Count 264 MPV 8.3 Absolute Neuts (auto) 7.2 Neutrophils % 76.0 Lymphocytes % 15.1 D Monocytes % 8.4 Eosinophils % 0.2 D Basophils % 0.3 Nucleated RBC % 0 PT with INR 10.70 INR 0.91 PTT (Actin FS) 27.2 Sodium Potassium Chloride Carbon Dioxide Anion Gap BUN Creatinine Est GFR (CKD-EPI)AfAm Est GFR (CKD-EPI)NonAf POC Glucometer Random Glucose Lactic Acid 2.2 H* Calcium Magnesium Iron TIBC Iron Saturation Unsaturated IBC Total Bilirubin AST ALT Alkaline Phosphatase Creatine Kinase Creatine Kinase Index CK-MB (CK-2) Troponin I Total Protein Albumin Vitamin B12 Serum Folate Alcohol, Quantitative 04/28/19 04/28/19 04/28/19 06:45 07:00 14:20 WBC RBC Hgb Hct MCV MCH MCHC RDW Plt Count MPV Absolute Neuts (auto) Neutrophils % Lymphocytes % Monocytes % Eosinophils % Basophils % Nucleated RBC % PT with INR INR PTT (Actin FS) Sodium 143 Potassium 4.4 Chloride 109 H Carbon Dioxide 27 Anion Gap 7 L BUN 37.6 H Creatinine 1.6 H Est GFR (CKD-EPI)AfAm 51.99 Est GFR (CKD-EPI)NonAf 44.86 POC Glucometer Random Glucose 117 H Lactic Acid 1.4 Calcium 9.3 Magnesium 2.6 H Iron TIBC Iron Saturation Unsaturated IBC Total Bilirubin 0.1 L AST 20 ALT 38 Alkaline Phosphatase 90 Creatine Kinase Creatine Kinase Index CK-MB (CK-2) Troponin I Total Protein 6.9 Albumin 3.6 Vitamin B12 Serum Folate Alcohol, Quantitative < 3.0 04/28/19 18:01 WBC RBC Hgb Hct MCV MCH MCHC RDW Plt Count MPV Absolute Neuts (auto) Neutrophils % Lymphocytes % Monocytes % Eosinophils % Basophils % Nucleated RBC % PT with INR INR PTT (Actin FS) Sodium Potassium Chloride Carbon Dioxide Anion Gap BUN Creatinine Est GFR (CKD-EPI)AfAm Est GFR (CKD-EPI)NonAf POC Glucometer 109 Random Glucose Lactic Acid Calcium Magnesium Iron TIBC Iron Saturation Unsaturated IBC Total Bilirubin AST ALT Alkaline Phosphatase Creatine Kinase Creatine Kinase Index CK-MB (CK-2) Troponin I Total Protein Albumin Vitamin B12 Serum Folate Alcohol, Quantitative Active Medications Generic Name Dose Route Start Last Admin Trade Name Lynette PRN Reason Stop Dose Admin Chlordiazepoxide HCl 10 mg 04/28/19 07:00 04/28/19 09:43 Librium - PO 10 mg BID AZIZA Administration Folic Acid 1 mg 04/29/19 10:00 Folic Acid - PO DAILY [facility] Sodium Chloride 1,000 mls @ 100 mls/hr 04/28/19 04:30 04/28/19 04:49 Normal Saline - IV Not Given ASDIR [facility] Multivitamins/Minerals 1 each 04/29/19 10:00 Theragran-M PO DAILY [facility] Thiamine HCl 100 mg 04/29/19 10:00 Vitamin B1 - PO DAILY [facility] ASSESSMENT/PLAN: Patient is a 64 year old male with PMH of chronic alcohol use, DM, HTN, HLD who BIBEMS from [facility] s/p fall. # s/p Fall - Likely 2/2 intoxication vs seizure/alcohol withdrawal vs neurologic Placing on continuous observation due to fall risk Seizure, aspiration, and fall precautions Frequent neuro checks MRI brain- limited exam, mild increased periventricular white matter, no acute or subacute chronic infarct, T2/FLAIR: Increased signal intensity in corpus callosum with cystic encephalomalacia ventral to rt lat ventricles in the rt aspect of body of corpus callosum. Consider EEG to monitor for seizures #Alcohol use/withdrawal unable to asses CIWA due to pt noncompliance on librium taper here: Librium 10mg BID for one day, followed by librium 10 qd. Will give IV thiamine, folate daily Monitor for seizures and other withdrawal symptoms #Elevated lactate Likely 2/2 to vomiting. No signs of infection 1.4 resolved #Microcytic anemia chronic Ordering anemia work-up and coags GI consulted (Dr. Jones) r/o GOO vs gastic dysmotility dysfunction due to stomach being distended with fluid and food inside, colonoscopy as outpt #Strangulated left inguinal hernia - CT abd pelvis: mod to large sliding hiatal hernia, significant distended stomach w fluid and food in it, dilated heterogeneous proximal celiac trunk compressed by diaphragm, should do CTA to eval, mod->large colonic stool burden , moderate rt hernia w fat, left hernia w stranding and edema, peritoneal sac strangulation and or incarceration. - Surgery Dr Barnes consulted awaiting recs #FEN IV NS @ 100 ml/hr NPO 2/2 aspiration risk #DVT ppx: SCDs #Dispo: monitoring on med surg, continuous monitoring Visit type - Emergency Visit Emergency Visit: Yes ED Registration Date: 04/28/19 Care time: The patient presented to the Emergency Department on the above date and was hospitalized for further evaluation of their emergent condition. - New Patient This patient is new to me today: No - Critical Care Critical Care patient: No - Discharge Referral Referred to [facility] No ATTENDING PHYSICIAN STATEMENT I saw and evaluated the patient. I reviewed the resident's note and discussed the case with the resident. I agree with the resident's findings and plan as documented. SUBJECTIVE: OBJECTIVE: ASSESSMENT AND PLAN:
[2019-04-29] MEDS ORDERED: guaiFENesin 200 MG/10 ML 10 ML UNIT-DOSE CUPS PO ONE (05:17)
[2019-04-29] MEDS: SODIUM CHLORIDE 1,000 ML IV SCH (05:39)
[2019-04-29 07:52] LABS: BASO % 0.6 % (0-2.0); EOS % 1.3 % (0-4.5); HEMATOCRIT 31.6 % (35.4-49); HEMOGLOBIN 9.7 GM/dL (11.7-16.9); LYMPH % 19.9 % (8-40); MCH 22.4 pg (25.7-33.7); MCHC 30.5 g/dl (32.0-35.9); MEAN CELL VOLUME 73.5 fl (80-96); MEAN PLT VOLUME 8.4 fl (7.5-11.1); NEUT % 72.2 % (42.8-82.8); PLATELET COUNT 259 K/MM3 (134-434); RDW 23.9 % (11.9-15.9); WHITE BLOOD COUNT 5.6 K/mm3 (4.0-10.0)
[2019-04-29 07:57] LABS: ALBUMIN 3.4 g/dl (3.4-5.0); BILIRUBIN,TOTAL 0.3 mg/dL (0.2-1); BLOOD UREA NITROGEN 28.8 mg/dL (7-18); CALCIUM 8.7 mg/dL (8.5-10.1); CREATININE 1.5 mg/dL (0.55-1.3); POTASSIUM 4.9 mmol/L (3.5-5.1); TOT PROT 6.8 g/dl (6.4-8.2)
--- NOTE | 2019-04-29 08:01 | CONSULT ---
- Consultation REQUESTING PROVIDER: Temitope Clements MD PGY1 CONSULT REQUEST: We have been asked to surgically evaluate this patient for a possible incarcerated left inguinal hernia. PCP:Domo Gonzalez MD HISTORY OF PRESENT ILLNESS: SAL who is a 64 y/o A/A/Male who was xferred here from [facility] for the second time in # days after a fall; he is at [facility] for detox. He has no c/o today; he denies nausea and/or vomiting and wants to eat; he is moving his bowels and passing flatus. He is not aware of any of the findings that were found on the CT scan of the a/p or why I was asked to see him. He was eating w/o difficulty prior to admission. PMHx: COPD PSHx: none known Home Medications Medication Instructions Recorded Ferrous Sulfate [Feosol] 325 mg PO TID 7 Days #21 tablet 01/15/19 Albuterol Sulfate Inhaler - 1 - 2 inh PO Q4H #1 inhaler 04/27/19 [Ventolin Hfa Inhaler -] Albuterol Sulfate [Proair 2 puff IH Q6H 04/28/19 Respiclick] Atorvastatin Ca [Lipitor] 40 mg PO HS 04/28/19 Fluticasone Propionate [Flovent 2 puff IH BID PRN 04/28/19 Diskus] Mirtazapine 15 mg PO DAILY 04/28/19 Allergies Allergy/AdvReac Type Severity Reaction Status Date / Time No Known Allergies Allergy Verified 04/28/19 00:24 REVIEW OF SYSTEMS: CONSTITUTIONAL: Absent: fever, chills, diaphoresis, generalized weakness, malaise, loss of appetite, weight change CARDIOVASCULAR: Absent: chest pain, syncope, palpitations, irregular heart rate, lightheadedness , peripheral edema RESPIRATORY: Absent: cough, shortness of breath, dyspnea with exertion, wheezing, stridor, hemoptysis GASTROINTESTINAL: Absent: abdominal pain, abdominal distension, nausea, vomiting, diarrhea, constipation, melena, hematochezia GENITOURINARY: Absent: dysuria, frequency, urgency, hesitancy, hematuria, flank pain, genital pain MUSCULOSKELETAL: Absent: myalgia, arthralgia, joint swelling, back pain, neck pain SKIN: Absent: rash, itching, pallor HEMATOLOGIC/IMMUNOLOGIC: Absent: easy bleeding, easy bruising, lymphadenopathy NEUROLOGIC: Absent: headache, focal weakness, paresthesias, dizziness, unsteady gait, seizure, mental status changes, bladder or bowel incontinence PSYCHIATRIC: Absent: anxiety, depression, suicidal or homicidal ideation, hallucinations. PHYSICAL EXAM: GENERAL: Awake, alert, and fully oriented, in no acute distress. HEAD: Normal with no signs of trauma. EYES: sclera anicteric, conjunctiva clear. NECK: Normal ROM, supple without lymphadenopathy, JVD, or masses. ABDOMEN: Soft, globose and nontender, not distended, normoactive bowel sounds, no guarding, no rebound, no masses. No organomegaly. Reducible right inguinal hernia; ? chronically incarcerated left inguinal hernia ?; there is nodularity in the left inguinal canal. Both testes are descended and unremarkable. MUSCULOSKELETAL: Normal ROM at all joints. No bony deformities or tenderness. No CVA tenderness. UPPER EXTREMITIES: 2+ pulses, warm, well-perfused. No cyanosis. Cap refill <2 seconds. No peripheral edema. LOWER EXTREMITIES: 2+ pulses, warm, well-perfused. No calf tenderness. No peripheral edema. NEUROLOGICAL: Normal speech, gait not observed. PSYCH: Cooperative. Good eye contact. Appropriate mood and affect. SKIN: Warm, dry, normal turgor, no rashes or lesions noted. Vital Signs Temperature 98.2 F 04/29/19 06:35 Pulse Rate 79 04/29/19 06:35 Respiratory Rate 20 04/29/19 06:35 Blood Pressure 119/68 04/29/19 06:35 O2 Sat by Pulse Oximetry (%) 97 04/28/19 21:00 Lab Results WBC 9.5 K/mm3 (4.0-10.0) 04/28/19 06:31 RBC 4.16 M/mm3 (4.00-5.60) 04/28/19 06:31 Hgb 9.5 GM/dL (11.7-16.9) L 04/28/19 06:31 Hct 30.2 % (35.4-49) L 04/28/19 06:31 MCV 72.6 fl (80-96) L 04/28/19 06:31 MCHC 31.4 g/dl (32.0-35.9) L 04/28/19 06:31 RDW 23.5 % (11.9-15.9) H 04/28/19 06:31 Plt Count 264 K/MM3 (134-434) 04/28/19 06:31 Sodium 143 mmol/L (136-145) 04/28/19 06:45 Potassium 4.4 mmol/L (3.5-5.1) 04/28/19 06:45 Chloride 109 mmol/L (98-107) H 04/28/19 06:45 Carbon Dioxide 27 mmol/L (21-32) 04/28/19 06:45 Anion Gap 7 MMOL/L (8-16) L 04/28/19 06:45 BUN 37.6 mg/dL (7-18) H 04/28/19 06:45 Creatinine 1.6 mg/dL (0.55-1.3) H 04/28/19 06:45 Random Glucose 117 mg/dL (74-106) H 04/28/19 06:45 Calcium 9.3 mg/dL (8.5-10.1) 04/28/19 06:45 INR 0.91 (0.83-1.09) 04/28/19 06:31 CT scan a/p reviewed and images reviewed. IMP: No evidence of a clinically incarcerated left inguinal hernia at this time ; in addition doubt patient has clinical GOO. PLAN: Agree with GI evaluation and possible EGD and related procedures; these hernias may be evaluated in the outpatient setting for repair if the patient can abstain from EtOH; no indication for surgical intervention at this time. Fernando Barnes MD FACS
[2019-04-29] MEDS: FOLIC ACID 1 MG TABLET (FP) PO SCH (09:52)
[2019-04-29] MEDS: chlordiazePOXIDE 5 MG CAPSULE PO SCH ×2 (09:53→10:55)
[2019-04-29] MEDS: MULTIVITAMINS THER W-MINERALS COMBO TABLET (FP) PO SCH (09:53)
[2019-04-29] MEDS: THIAMINE HCL 100 MG TABLET (FP) PO SCH (09:53)
--- NOTE | 2019-04-29 12:13 | ECHO ---
Version: 1 Name: KAROLINA MORAES Exam: Adult Echocardiogram Study Date: 04/29/2019, 10:22 AM Age: 64 Years MMode/2D Measurements & Calculations IVSd: 1.03 cm LVIDs: 3.1 cm LVIDd: 4.6 cm LVPWd: 0.88 cm LVOT diam: 2.02 cm Ao root diam: 2.8 cm Doppler Measurements & Calculations MV E max cj: 52.8 cm/sec Med E/e': 9.5 MV A max cj: 63.7 cm/sec Med Peak E' Cj: 5.6 cm/sec MV E/A: 0.83 Lat E/e': 4.9 Lat Peak E' Cj: 10.8 cm/sec Ao max P.1 mmHg BUCKY(I,D): 1.73 cm Ao mean P.8 mmHg LV V1 mean: 55.5 cm/sec Ao V2 max: 159.3 cm/sec LV V1 mean P.46 mmHg PI end-d cj: 112.7 cm/sec Left Ventricle The left ventricular size, thickness and function are normal. Abnormal diastolic relaxation. Right Ventricle The right ventricle is normal in size and function. Atria Normal left and right atrial size and function. Mitral Valve The mitral valve is normal in structure and function. Tricuspid Valve The tricuspid valve is normal in structure and function. Aortic Valve The aortic valve is normal in structure and function. Pulmonic Valve The pulmonic valve is normal in structure and function. Great Vessels The aortic root is normal size. Pericardium/Pleura There is no pericardial effusion. Summary Statements The left ventricular size, thickness and function are normal The right ventricle is normal in size and function. Normal left and right atrial size and function. The mitral valve is normal in structure and function. The tricuspid valve is normal in structure and function. The aortic valve is normal in structure and function. The pulmonic valve is normal in structure and function. EF 61% MD Segundo Valadez 04/29/2019, 11:13 AM Ordering Physician: LAURA LUU Referring Physician: LÁZARO MURPHY Performed By: Nicolette White
--- NOTE | 2019-04-29 14:58 | CON.GI ---
Consult Consult Specialty:: GI Referred by:: Hospitalist service Reason for Consultation:: fecal retention, retained gastric content - History of Present Illness Chief Complaint: Patient uncooperative with exam. stuporous and said in limited words that he did not want to be examined. Layed on his right side. History of Present Illness: 64M transferred from [facility] secondary to fall. He was brought from [place] , where he resides, to [facility] for alcohol detox. Vomiting was noted. Noted to have retained gastric content and fecal retention on CT scan. There has been no active vomiting since admission. Patient stuporous. He did not answer questions or cooperate with an exam. - History Source History Provided By: Medical Record - Past Medical History Cardio/Vascular: Yes: HTN, Hyperlipdemia Psych: Yes: Addictions (Alcohol) Endocrine: Yes: Diabetes Mellitus - Alcohol/Substance Use Hx Alcohol Use: Yes - Smoking History Smoking history: Current every day smoker Have you smoked in the past 12 months: Yes Aproximately how many cigarettes per day: 4 Home Medications - Allergies Allergies/Adverse Reactions: Allergies Allergy/AdvReac Type Severity Reaction Status Date / Time No Known Allergies Allergy Verified 04/28/19 00:24 - Home Medications Home Medications: Ambulatory Orders Ferrous Sulfate [Feosol] 325 mg PO TID 7 Days #21 tablet 01/15/19 Albuterol Sulfate Inhaler - [Ventolin Hfa Inhaler -] 1 - 2 inh PO Q4H #1 inhaler 04/27/19 Albuterol Sulfate [Proair Respiclick] 2 puff IH Q6H 04/28/19 Atorvastatin Ca [Lipitor] 40 mg PO HS 04/28/19 Fluticasone Propionate [Flovent Diskus] 2 puff IH BID PRN 04/28/19 Mirtazapine 15 mg PO DAILY 04/28/19 Family Disease History - Family Disease History Family History: Unable to Obtain Family Disease History: Other: Grandparent (), Father (no contact), Mother () Physical Exam-GI Vital Signs: Vital Signs Temperature 98.6 F 04/29/19 10:00 Pulse Rate 83 04/29/19 10:00 Respiratory Rate 18 04/29/19 10:00 Blood Pressure 102/73 04/29/19 10:00 O2 Sat by Pulse Oximetry (%) 97 04/28/19 21:00 Constitutional: Yes: Calm Eyes: No: Sclera Icterus Cardiovascular: Yes: Regular Rate and Rhythm. No: Murmur Respiratory: Yes: Diminished (at bases, poor insp effort) Gastrointestinal Inspection: Yes: Hernia (Unable to assess hernia given patient position). No: Distention ...Auscultate: Yes: Normoactive Bowel Sounds ...Palpate: Yes: Soft. No: Tenderness (no grimacing upon palpation. exam limited as the patient layed on his right side) ...Percussion: No: Tympanitic Edema: Yes Edema: LLE: 1+, RLE: 1+ Neurological: Yes: Lethargy Labs: CBC, BMP 04/29/19 06:06 04/29/19 06:08 INR, PTT INR 0.91 (0.83-1.09) 04/28/19 06:31 Imaging - Results Cat Scan: Report Reviewed, Image Reviewed Problem List - Problems (1) Vomiting Assessment/Plan: No vomiting noted ? gastroparesis / alternate etiology. ? When acute issues are resolved and when patient can cooperate and give consent, upper endoscopy can be considered for evaluation. Could repeat CT scan of abdomen without contrast while patient has been NPO to assess for persistence of gastric retention Code(s): R11.10 - VOMITING, UNSPECIFIED (2) Anemia Assessment/Plan: Microcytic anemia If he has not had one, colonoscopy could be considered when acute issues are resolved. Given fecal retention noted on exam, iron supplement should be held for 1 week and daily bowel regimen should be initiated prior to attempt at bowel prep. Code(s): D64.9 - ANEMIA, UNSPECIFIED Qualifiers: Anemia type: unspecified type Qualified Code(s): D64.9 - Anemia, unspecified (3) Hernia Assessment/Plan: Unable to assess inguinal hernia as patient would not cooperate with exam Evaluated by surgery Code(s): K46.9 - UNSPECIFIED ABDOMINAL HERNIA WITHOUT OBSTRUCTION OR GANGRENE
--- NOTE | 2019-04-29 16:00 | PN ---
Teaching Attending Note Name of Resident: Eduardo Clements ATTENDING PHYSICIAN STATEMENT I saw and evaluated the patient. I reviewed the resident's note and discussed the case with the resident. I agree with the resident's findings and plan as documented. SUBJECTIVE: Patient denies abdominal pain, nausea, vomiting. OBJECTIVE: Vital Signs Period Temp Pulse Resp BP Sys/Mathur Pulse Ox Last 24 Hr 98.1 F-98.6 F 79-98 18-20 102-158/68-84 97 HEART: S1S2, RRR LUNGS: Clear ABDOMEN: Soft, non-distended, non-tender, normal BS EXTREMITIES: No edema Laboratory Results - last 24 hr 04/28/19 04/28/19 04/28/19 14:20 18:01 20:57 WBC RBC Hgb Hct MCV MCH MCHC RDW Plt Count MPV Absolute Neuts (auto) Neutrophils % Lymphocytes % Monocytes % Eosinophils % Basophils % Nucleated RBC % Sodium Potassium Chloride Carbon Dioxide Anion Gap BUN Creatinine Est GFR (CKD-EPI)AfAm Est GFR (CKD-EPI)NonAf POC Glucometer 109 92 Random Glucose Lactic Acid 1.4 Calcium Total Bilirubin AST ALT Alkaline Phosphatase Total Protein Albumin 04/29/19 04/29/19 04/29/19 05:43 06:06 06:08 WBC 5.6 RBC 4.30 Hgb 9.7 L Hct 31.6 L MCV 73.5 L MCH 22.4 L MCHC 30.5 L RDW 23.9 H Plt Count 259 MPV 8.4 Absolute Neuts (auto) 4.1 Neutrophils % 72.2 Lymphocytes % 19.9 D Monocytes % 6.0 Eosinophils % 1.3 D Basophils % 0.6 Nucleated RBC % 0 Sodium 143 Potassium 4.9 Chloride 110 H Carbon Dioxide 27 Anion Gap 6 L BUN 28.8 H Creatinine 1.5 H Est GFR (CKD-EPI)AfAm 56.21 Est GFR (CKD-EPI)NonAf 48.50 POC Glucometer 96 Random Glucose 84 Lactic Acid Calcium 8.7 Total Bilirubin 0.3 AST 29 ALT 44 Alkaline Phosphatase 80 Total Protein 6.8 Albumin 3.4 04/29/19 11:58 WBC RBC Hgb Hct MCV MCH MCHC RDW Plt Count MPV Absolute Neuts (auto) Neutrophils % Lymphocytes % Monocytes % Eosinophils % Basophils % Nucleated RBC % Sodium Potassium Chloride Carbon Dioxide Anion Gap BUN Creatinine Est GFR (CKD-EPI)AfAm Est GFR (CKD-EPI)NonAf POC Glucometer 98 Random Glucose Lactic Acid Calcium Total Bilirubin AST ALT Alkaline Phosphatase Total Protein Albumin Current Medications Generic Name Dose Route Start Last Admin Trade Name Lynette PRN Reason Stop Dose Admin Chlordiazepoxide HCl 10 mg 04/29/19 09:15 04/29/19 10:55 Librium - PO Not Given DAILY AZIZA Folic Acid 1 mg 04/29/19 10:00 04/29/19 09:52 Folic Acid - PO 1 mg DAILY AZIZA Administration Sodium Chloride 1,000 mls @ 100 mls/hr 04/28/19 04:30 04/29/19 05:39 Normal Saline - IV Not Given ASDIR AZIZA Multivitamins/Minerals 1 each 04/29/19 10:00 04/29/19 09:53 Theragran-M PO 1 each DAILY AZIZA Administration Thiamine HCl 100 mg 04/29/19 10:00 04/29/19 09:53 Vitamin B1 - PO 100 mg DAILY AZIZA Administration ASSESSMENT AND PLAN: This is a 64 year old man with a history of HTN, hyperlipidemia, type 2 DM, alcohol abuse who was sent to the ED from [facility] after a fall. 1. s/p fall - Alcohol-related, intoxication vs seizure vs withdrawal - MRI of brain is limited secondary to motion and shows no evidence of infarct, mild increased signal in periventricular white matter, increased signal in body of corpus callosum with cystic encephalomalacia 2. Alcohol withdrawal - Continue Librium detox 3. Continuous alcohol abuse - Continue thiamine, folic acid, multivitamin 4. Lactic acidemia - Likely secondary to vomiting/dehydration - Resolved 5. Anemia, microcytic - Chronic - Iron, iron saturation are low; TIBC normal - Check stool occult blood - Will need colonoscopy - GI recommendations noted 6. Possible gastric outlet obstruction, gastroparesis - GI input appreciated - Will repeat CT A/P - Endoscopy if patient agreeable once treatment for alcohol withdrawal completed 7. 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 Bilateral inguinal hernias - Surgery input appreciated - no evidence of incarceration 9. HTN - BP ok wthout meds - Monitor BP 10. Hyperlipidemia 11. Type 2 DM - Fingersticks with Novolog sliding scale once he is eating 12. Stage 3 CKD - Stable
--- NOTE | 2019-04-29 18:30 | PN ---
Physical Exam: SUBJECTIVE: Patient seen and examined at bedside this AM. No acute events. OBJECTIVE: Vital Signs Period Temp Pulse Resp BP Sys/Mathur Pulse Ox Last 24 Hr 98.1 F-98.6 F 79-84 18-20 102-128/68-84 97 GENERAL: The patient is awake, alert, and fully oriented, in no acute distress. HEAD: Normal with no signs of trauma. NECK: supple. LUNGS: Breath sounds equal, wheezing on expiration slight. HEART: Regular rate and rhythm, S1, S2 without murmur, rub or gallop. ABDOMEN: Soft, nontender, distended, normoactive bowel sounds, no guarding, no rebound. EXTREMITIES: 2+ pulses, warm, well-perfused, no edema. Genitalia: rt inguinal henia appreciated, but left was not, both testes in scrotum. no varicocele appreciated. NEUROLOGICAL: Cranial nerves II through XII grossly intact. Normal speech, gait not observed. PSYCH: stuporous SKIN: Warm, dry, no rashes or lesions noted Laboratory Results - last 24 hr 04/28/19 04/29/19 04/29/19 20:57 05:43 06:06 WBC 5.6 RBC 4.30 Hgb 9.7 L Hct 31.6 L MCV 73.5 L MCH 22.4 L MCHC 30.5 L RDW 23.9 H Plt Count 259 MPV 8.4 Absolute Neuts (auto) 4.1 Neutrophils % 72.2 Lymphocytes % 19.9 D Monocytes % 6.0 Eosinophils % 1.3 D Basophils % 0.6 Nucleated RBC % 0 Sodium Potassium Chloride Carbon Dioxide Anion Gap BUN Creatinine Est GFR (CKD-EPI)AfAm Est GFR (CKD-EPI)NonAf POC Glucometer 92 96 Random Glucose Calcium Total Bilirubin AST ALT Alkaline Phosphatase Total Protein Albumin 04/29/19 04/29/19 06:08 11:58 WBC RBC Hgb Hct MCV MCH MCHC RDW Plt Count MPV Absolute Neuts (auto) Neutrophils % Lymphocytes % Monocytes % Eosinophils % Basophils % Nucleated RBC % Sodium 143 Potassium 4.9 Chloride 110 H Carbon Dioxide 27 Anion Gap 6 L BUN 28.8 H Creatinine 1.5 H Est GFR (CKD-EPI)AfAm 56.21 Est GFR (CKD-EPI)NonAf 48.50 POC Glucometer 98 Random Glucose 84 Calcium 8.7 Total Bilirubin 0.3 AST 29 ALT 44 Alkaline Phosphatase 80 Total Protein 6.8 Albumin 3.4 Active Medications Generic Name Dose Route Start Last Admin Trade Name Lynette PRN Reason Stop Dose Admin Chlordiazepoxide HCl 10 mg 04/29/19 09:15 04/29/19 10:55 Librium - PO Not Given DAILY AZIZA Folic Acid 1 mg 04/29/19 10:00 04/29/19 09:52 Folic Acid - PO 1 mg DAILY AZIZA Administration Sodium Chloride 1,000 mls @ 100 mls/hr 04/28/19 04:30 04/29/19 05:39 Normal Saline - IV Not Given ASDIR AZIZA Multivitamins/Minerals 1 each 04/29/19 10:00 04/29/19 09:53 Theragran-M PO 1 each DAILY AZIZA Administration Thiamine HCl 100 mg 04/29/19 10:00 04/29/19 09:53 Vitamin B1 - PO 100 mg DAILY AZIZA Administration ASSESSMENT/PLAN: Patient is a 64 year old male with PMH of chronic alcohol use, DM, HTN, HLD who BIBEMS from [facility] s/p fall. # s/p Fall - Likely 2/2 intoxication vs seizure/alcohol withdrawal vs neurologic Placing on continuous observation due to fall risk Seizure, aspiration, and fall precautions Frequent neuro checks MRI brain- limited exam, mild increased periventricular white matter, no acute or subacute chronic infarct, T2/FLAIR: Increased signal intensity in corpus callosum with cystic encephalomalacia ventral to rt lat ventricles in the rt aspect of body of corpus callosum. #Alcohol use/withdrawal unable to asses CIWA due to pt noncompliance on librium taper here: Librium 10mg BID for one day, followed by librium 10 qd. Will give IV thiamine, folate daily Monitor for seizures and other withdrawal symptoms #orthopnea - echo done- normal EF 61%, normal study no wall motion abnormalities. #Microcytic anemia chronic Ordering anemia work-up and coags - GI consulted (Dr. Carpenter)- pt refused exam recommendations below: - CT abd pelvis w/o contrast ordered to r/o GOO due to stomach being distended with fluid and food inside, colonoscopy as outpt and endo once pt consents. #Strangulated left inguinal hernia - CT abd pelvis: mod to large sliding hiatal hernia, significant distended stomach w fluid and food in it, dilated heterogeneous proximal celiac trunk compressed by diaphragm, should do CTA to eval, mod->large colonic stool burden , moderate rt hernia w fat, left hernia w stranding and edema, peritoneal sac strangulation and or incarceration. - Surgery Dr Barnes- can repair inguinal hernia as o/p pt counseled to refrain from ETOH use. #FEN IV NS @ 100 ml/hr NPO 2/2 aspiration risk #DVT ppx: SCDs #Dispo: monitoring on med surg, continuous monitoring Visit type - Emergency Visit Emergency Visit: Yes ED Registration Date: 04/28/19 Care time: The patient presented to the Emergency Department on the above date and was hospitalized for further evaluation of their emergent condition. - New Patient This patient is new to me today: No - Critical Care Critical Care patient: No - Discharge Referral Referred to [facility] Med P.C.: No ATTENDING PHYSICIAN STATEMENT I saw and evaluated the patient. I reviewed the resident's note and discussed the case with the resident. I agree with the resident's findings and plan as documented. SUBJECTIVE: OBJECTIVE: ASSESSMENT AND PLAN:
[2019-04-29] MEDS ORDERED: ALBUTEROL SO4 8 GM HFA INHALER IH PRN (18:53)
[2019-04-29] MEDS: FLUTICASONE PROP 0.05% 16 GM NASAL SPRAY NS SCH (23:27)
[2019-04-30] MEDS: SODIUM CHLORIDE 1,000 ML IV SCH (06:14)
[2019-04-30] MEDS ORDERED: PT OWN MED DRAWER 7, Y5N ONE (06:44)
[2019-04-30] MEDS: MULTIVITAMINS THER W-MINERALS COMBO TABLET (FP) PO SCH (10:18)
[2019-04-30] MEDS: FLUTICASONE PROP 0.05% 16 GM NASAL SPRAY NS SCH ×2 (10:18→22:27)
[2019-04-30] MEDS: chlordiazePOXIDE 5 MG CAPSULE PO SCH (10:18)
[2019-04-30] MEDS: THIAMINE HCL 100 MG TABLET (FP) PO SCH (10:18)
[2019-04-30] MEDS: FOLIC ACID 1 MG TABLET (FP) PO SCH (10:18)
--- NOTE | 2019-04-30 10:49 | PN.GI ---
GI Progress Note Subjective: Pt seen/examined at bedside, ambulating around the bed, feeling better. Denies abdominal pain, n/v. Moving bowels per nurse. No blood reported. Pt asking to eat. Oriented to person and time. States he had a EGD/colonoscopy within the year in [place] (details unclear). Last drink on Sunday per pt. - Objective Vital Signs: Vital Signs Temperature 98.0 F 04/30/19 10:00 Pulse Rate 90 04/30/19 10:00 Respiratory Rate 18 04/30/19 10:00 Blood Pressure 117/89 04/30/19 10:00 O2 Sat by Pulse Oximetry (%) 96 04/29/19 21:00 Constitutional: Well Nourished, No Distress, Calm Cardiovascular: Yes: WNL, Regular Rate and Rhythm Respiratory: Yes: WNL, Regular, CTA Bilaterally Gastrointestinal Inspection: Yes: WNL ...Palpate: Yes: Other (Abd soft, non tender, non distended +small ventral hernia) Labs: CBC, BMP 04/29/19 06:06 04/29/19 06:08 INR, PTT INR 0.91 (0.83-1.09) 04/28/19 06:31 Problem List - Problems (1) Vomiting Assessment/Plan: Resolved. No further episodes of nausea/vomiting reported. More alert though mentation does appear to be fluctuating. No overt bleeding and no clinical features of GOO. CT imaging revealing distended fluid filled stomach, large hiatal hernia, inguinal hernia and possible celiac stenosis. Repeat CT abd/ pelvis appears improved, stomach decompressed (d/w Dr. An). -Await final repeat CT abd/pelvis report -Pending final report, start clear liquids and advance as tolerated -No GI symptoms currently therefore risks and benefits of CTA need to be weighed considering renal insufficiency. Could obtain duplex US to further evaluate though per radiologist is usually done on outpatient basis. Further testing could be pursued as outpt pending course as pt currently asymptomatic. -Outpatient hernia repair advised per surgery Code(s): R11.10 - VOMITING, UNSPECIFIED (2) Microcytic anemia Assessment/Plan: Microcytic anemia noted with evidence of iron deficiency, no overt bleeding. Possible EGD/colon at outside facility within 1 year per pt. -Monitor Hb -Check ferritin -Try to obtain outside endoscopy reports if possible otherwise in setting of iron deficiency pt would require EGD and colonoscopy to further evaluate once further optimized. -Pt not able to verbalize understanding of indication/risks/benefits of endoscopy on discussion today and requested I speak with his aunt (BLANK). She states he can make his own decisions and will discuss further with him. She also reported EGD at [facility] 6-12 months ago, unclear if prior colonoscopy. -If overt bleeding or drop in Hb would consider more urgent endoscopic evaluation at that time Code(s): D50.9 - IRON DEFICIENCY ANEMIA, UNSPECIFIED
[2019-04-30 12:02] LABS: COCAINE, UR NEGATIVE ng/ml (CUTOFF=300); METHADONE, UR NEGATIVE ng/ml (CUTOFF=300); OPIATES, URI NEGATIVE ng/ml (CUTOFF=300); PHENCYCLIDINE,URINE NEGATIVE ng/ml (CUTOFF=25); URINE AMPHETAMINES NEGATIVE ng/ml (CUTOFF=500); URINE BARBITURATES NEGATIVE ng/ml (CUTOFF=200)
[2019-04-30 12:10] LABS: URINE BENZODIAZEPINES POSITIVE ng/ml (CUTOFF=200)
[2019-04-30 12:56] LABS: BASO % 0.3 % (0-2.0); EOS % 0.7 % (0-4.5); HEMATOCRIT 33.7 % (35.4-49); HEMOGLOBIN 10.5 GM/dL (11.7-16.9); LYMPH % 16.5 % (8-40); MCH 22.6 pg (25.7-33.7); MCHC 31.1 g/dl (32.0-35.9); MEAN CELL VOLUME 72.8 fl (80-96); MEAN PLT VOLUME 8.3 fl (7.5-11.1); MONO % 6.9 % (3.8-10.2); NEUT % 75.6 % (42.8-82.8); PLATELET COUNT 288 K/MM3 (134-434); RBC 4.62 M/mm3 (4.00-5.60); RDW 23.6 % (11.9-15.9); WHITE BLOOD COUNT 4.8 K/mm3 (4.0-10.0)
[2019-04-30 13:24] LABS: ALBUMIN 3.9 g/dl (3.4-5.0); BILIRUBIN,TOTAL 0.3 mg/dL (0.2-1); BLOOD UREA NITROGEN 24.3 mg/dL (7-18); CALCIUM 9.6 mg/dL (8.5-10.1); CREATININE 1.4 mg/dL (0.55-1.3); POTASSIUM 5.2 mmol/L (3.5-5.1); TOT PROT 7.5 g/dl (6.4-8.2)
[2019-04-30 14:24] LABS: ANISOCYTOSIS 1+; MACROCYTOSIS 0; OVALOCYTE 1+; PLATELET ESTIMATE NORMAL
--- NOTE | 2019-04-30 14:25 | PN ---
Teaching Attending Note Name of Resident: Mary Diaz ATTENDING PHYSICIAN STATEMENT I saw and evaluated the patient. I reviewed the resident's note and discussed the case with the resident. I agree with the resident's findings and plan as documented. SUBJECTIVE: No fever or chills. No WINTER , no Abd pain, no N/V , not able to tell me when his last BM was OBJECTIVE: NAd CV : RRR, no MRG Lungs: CTAB Ext : no edema or erythema Abd: : obese, soft, NT, NL BS ASSESSMENT AND PLAN: 64 y/o man with h/o Alcoholism, HTn, HLP, DM , CKD 3, who presented from [facility] with a fall while being detoxed. 1- Fall: likely mechanical . MRI reviewed. 2- ETOH WD: received librium 10 mg on 18, and 10 mg daily here since admission - will change to PRN and give only for withdrawal sx 3- Questionable gastric outlet obstruction : no N/V. no abd tenderness. 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 has no sx now. - No Recs from GI yet. will call radiologist if US has any role in this case 5- Microcytic anemia: TIBC on upper normal limit, suspect iron def. - ferritin pending - colo and EGD, timing per GI - if ferritin low , will start iron supp 6- Inguinal hernia: CT reviewed. Sx Recs reviewed. 7- DM : will confirm home meds - check A1c - SSI 8- DVT PX : add heparin 5000 units TID
--- NOTE | 2019-04-30 16:19 | PN ---
Physical Exam: SUBJECTIVE: Patient seen and examined at bedside. No acute events overnight. OBJECTIVE: Vital Signs Period Temp Pulse Resp BP Sys/Mathur Pulse Ox Last 24 Hr 97.4 F-98.3 F 73-90 18-20 116-142/75-89 96-96 GENERAL: The patient is awake, alert, and fully oriented, in no acute distress. Pt mumbles, tough to understand. HEAD: Normal with no signs of trauma. NECK: supple. LUNGS: Breath sounds decreased wheezing b/l. HEART: Regular rate and rhythm, S1, S2 without murmur, rub or gallop. ABDOMEN: Soft, nontender, chronically distended, nontympanitic, normoactive bowel sounds, no guarding, no rebound. EXTREMITIES: 2+ pulses, warm, well-perfused, no edema. PSYCH: labile affect, slightly agitated SKIN: Warm, dry, no rashes or lesions noted genitalia: testicles in scroytum, no masses appreciated. Laboratory Results - last 24 hr 04/29/19 04/29/19 04/30/19 16:58 23:26 06:10 WBC RBC Hgb Hct MCV MCH MCHC RDW Plt Count MPV Absolute Neuts (auto) Neutrophils % Lymphocytes % Monocytes % Eosinophils % Basophils % Nucleated RBC % Hypochromia Platelet Estimate Polychromasia Poikilocytosis Anisocytosis Microcytosis Macrocytosis Ovalocytes Sodium Potassium Chloride Carbon Dioxide Anion Gap BUN Creatinine Est GFR (CKD-EPI)AfAm Est GFR (CKD-EPI)NonAf POC Glucometer 88 88 95 Random Glucose Calcium Ferritin Total Bilirubin AST ALT Alkaline Phosphatase Total Protein Albumin Opiates Screen Methadone Screen Barbiturate Screen Phencyclidine Screen Ur Amphetamines Screen MDMA (Ecstasy) Screen Benzodiazepines Screen Cocaine Screen U Marijuana (THC) Screen 04/30/19 04/30/19 04/30/19 08:04 12:18 12:18 WBC 4.8 RBC 4.62 Hgb 10.5 L Hct 33.7 L MCV 72.8 L MCH 22.6 L MCHC 31.1 L RDW 23.6 H Plt Count 288 MPV 8.3 Absolute Neuts (auto) 3.6 Neutrophils % 75.6 Lymphocytes % 16.5 Monocytes % 6.9 Eosinophils % 0.7 Basophils % 0.3 Nucleated RBC % 0 Hypochromia 0 Platelet Estimate Normal Polychromasia 0 Poikilocytosis 1+ Anisocytosis 1+ Microcytosis 1+ Macrocytosis 0 Ovalocytes 1+ Sodium 137 Potassium 5.2 H Chloride 102 Carbon Dioxide 30 Anion Gap 6 L BUN 24.3 H Creatinine 1.4 H Est GFR (CKD-EPI)AfAm 61.10 Est GFR (CKD-EPI)NonAf 52.72 POC Glucometer Random Glucose 90 Calcium 9.6 Ferritin 18.7 Total Bilirubin 0.3 AST 22 ALT 46 Alkaline Phosphatase 92 Total Protein 7.5 Albumin 3.9 Opiates Screen Negative Methadone Screen Negative Barbiturate Screen Negative Phencyclidine Screen Negative Ur Amphetamines Screen Negative MDMA (Ecstasy) Screen Negative Benzodiazepines Screen Positive A* Cocaine Screen Negative U Marijuana (THC) Screen Negative 04/30/19 12:39 WBC RBC Hgb Hct MCV MCH MCHC RDW Plt Count MPV Absolute Neuts (auto) Neutrophils % Lymphocytes % Monocytes % Eosinophils % Basophils % Nucleated RBC % Hypochromia Platelet Estimate Polychromasia Poikilocytosis Anisocytosis Microcytosis Macrocytosis Ovalocytes Sodium Potassium Chloride Carbon Dioxide Anion Gap BUN Creatinine Est GFR (CKD-EPI)AfAm Est GFR (CKD-EPI)NonAf POC Glucometer 89 Random Glucose Calcium Ferritin Total Bilirubin AST ALT Alkaline Phosphatase Total Protein Albumin Opiates Screen Methadone Screen Barbiturate Screen Phencyclidine Screen Ur Amphetamines Screen MDMA (Ecstasy) Screen Benzodiazepines Screen Cocaine Screen U Marijuana (THC) Screen Active Medications Generic Name Dose Route Start Last Admin Trade Name Freq PRN Reason Stop Dose Admin Albuterol Sulfate 2 puff 04/29/19 18:53 Ventolin Hfa Inhaler - IH Q4H PRN SHORT OF BREATH/WHEEZING Chlordiazepoxide HCl 10 mg 04/29/19 09:15 04/30/19 10:18 Librium - PO 10 mg DAILY AZIZA Administration Fluticasone Propionate 1 spray 04/29/19 22:00 04/30/19 10:18 Flonase - NS 1 spray BID AZIZA Administration Folic Acid 1 mg 04/29/19 10:00 04/30/19 10:18 Folic Acid - PO 1 mg DAILY AZIZA Administration Heparin Sodium (Porcine) 5,000 unit 04/30/19 22:00 Heparin - SQ TID AZIZA Sodium Chloride 1,000 mls @ 100 mls/hr 04/28/19 04:30 04/30/19 06:14 Normal Saline - IV 100 mls/hr ASDIR AZIZA Administration Multivitamins/Minerals 1 each 04/29/19 10:00 04/30/19 10:18 Theragran-M PO 1 each DAILY AZIZA Administration Thiamine HCl 100 mg 04/29/19 10:00 04/30/19 10:18 Vitamin B1 - PO 100 mg DAILY AZIZA Administration ASSESSMENT/PLAN: MRI brain- limited exam, mild increased periventricular white matter, no acute or subacute chronic infarct, T2/FLAIR: Increased signal intensity in corpus callosum with cystic encephalomalacia ventral to rt lat ventricles in the rt aspect of body of corpus callosum. - CT abd pelvis: mod to large sliding hiatal hernia, significant distended stomach w fluid and food in it, dilated heterogeneous proximal celiac trunk compressed by diaphragm, should do CTA to eval, mod->large colonic stool burden , moderate rt hernia w fat, left hernia w stranding and edema, peritoneal sac strangulation and or incarceration. - repeat CT results- Patient is a 64 year old male with PMH of chronic alcohol use, DM, HTN, HLD who BIBEMS from [facility] s/p fall. #Testicular/stomach cancer - pt is not a great historian but mentioned testicular cancer in his hx ( unilateral unsure of management done) discussed w Dr. Corey (GI) and stomach cancer history per patient is being followed [facility] and he [facility] [place]. # s/p Fall - Likely 2/2 intoxication vs seizure/alcohol withdrawal vs neurologic - on continuous observation due to fall risk Seizure, aspiration, fall precautions Frequent neuro checks #Alcohol use/withdrawal unable to asses CIWA due to pt noncompliance on librium taper here: Librium 10mg BID for one day, followed by librium 10 qd. Will give IV thiamine, folate daily Monitor for seizures and other withdrawal symptoms #orthopnea - echo done- normal EF 61%, normal study no wall motion abnormalities. #Microcytic anemia Ordering anemia work-up and coags - GI consulted (Dr. Corey)- Rpt CT pending but her prelim read is that its not showing signs of GOO. - CT abd pelvis w/o contrast ordered to r/o GOO due to stomach being distended with fluid and food inside, - colonoscopy as outpt and endo as an o/p considering he had one already 6-12 mths ago in [facility] per pts aunt. - Will do urgent EGD is Hb drops or orther alarm symptoms occur. #Strangulated left inguinal hernia - Surgery Dr Barnes- can repair inguinal hernia as o/p pt counseled to refrain from ETOH use. - awaiting repeat CT. - hernia appreciated on exam on right side not left which is not consistent with CT findings. #FEN IV NS @ 100 ml/hr NPO 2/2 aspiration risk #DVT ppx: SCDs #Dispo: monitoring on med surg, continuous monitoring Visit type - Emergency Visit Emergency Visit: Yes ED Registration Date: 04/28/19 Care time: The patient presented to the Emergency Department on the above date and was hospitalized for further evaluation of their emergent condition. - New Patient This patient is new to me today: No - Critical Care Critical Care patient: No - Discharge Referral Referred to [facility] Med P.C.: No ATTENDING PHYSICIAN STATEMENT I saw and evaluated the patient. I reviewed the resident's note and discussed the case with the resident. I agree with the resident's findings and plan as documented. SUBJECTIVE: OBJECTIVE: ASSESSMENT AND PLAN:
[2019-04-30] MEDS ORDERED: chlordiazePOXIDE 5 MG CAPSULE PO PRN (16:55)
[2019-04-30 21:15] LABS: BLOOD UREA NITROGEN 26.6 mg/dL (7-18); CALCIUM 9.4 mg/dL (8.5-10.1); CREATININE 1.5 mg/dL (0.55-1.3)
[2019-04-30] MEDS: HEPARIN NA (PORCINE) 5,000 UNITS/ML 1ML VIAL SQ SCH (22:28)
[2019-05-01] MEDS: HEPARIN NA (PORCINE) 5,000 UNITS/ML 1ML VIAL SQ SCH ×2 (08:17→15:15)
[2019-05-01] MEDS: SODIUM CHLORIDE 1,000 ML IV SCH (08:17)
[2019-05-01 08:26] LABS: BASO % 0.4 % (0-2.0); EOS % 1.3 % (0-4.5); HEMATOCRIT 35.8 % (35.4-49); HEMOGLOBIN 11.1 GM/dL (11.7-16.9); LYMPH % 16.2 % (8-40); MCH 22.7 pg (25.7-33.7); MEAN CELL VOLUME 73.3 fl (80-96); MEAN PLT VOLUME 8.2 fl (7.5-11.1); MONO % 7.9 % (3.8-10.2); NEUT % 74.2 % (42.8-82.8); PLATELET COUNT 301 K/MM3 (134-434); RBC 4.88 M/mm3 (4.00-5.60); RDW 22.8 % (11.9-15.9); WHITE BLOOD COUNT 5.2 K/mm3 (4.0-10.0)
[2019-05-01 08:55] LABS: ALBUMIN 3.8 g/dl (3.4-5.0); BILIRUBIN,TOTAL 0.4 mg/dL (0.2-1); CALCIUM 9.3 mg/dL (8.5-10.1); CREATININE 1.6 mg/dL (0.55-1.3); POTASSIUM 4.9 mmol/L (3.5-5.1); TOT PROT 7.6 g/dl (6.4-8.2)
[2019-05-01] MEDS: FLUTICASONE PROP 0.05% 16 GM NASAL SPRAY NS SCH (10:45)
[2019-05-01] MEDS: MULTIVITAMINS THER W-MINERALS COMBO TABLET (FP) PO SCH (10:46)
[2019-05-01] MEDS: FOLIC ACID 1 MG TABLET (FP) PO SCH (10:46)
[2019-05-01] MEDS: THIAMINE HCL 100 MG TABLET (FP) PO SCH (10:46)
[2019-05-01 11:26] VITALS: BP 107/81; PULSE 110; TEMP 98.9
--- NOTE | 2019-05-01 14:35 | PN ---
Teaching Attending Note Name of Resident: Eduardo Clements ATTENDING PHYSICIAN STATEMENT I saw and evaluated the patient. I reviewed the resident's note and discussed the case with the resident. I agree with the resident's findings and plan as documented. SUBJECTIVE: vomited once this am. No abd pain , tolerating his diet. OBJECTIVE: NAd CV : RRR, no MRG Lungs: CTAB Ext : no edema or erythema Abd: : obese, soft, NT, NL BS ASSESSMENT AND PLAN: 64 y/o man with h/o Alcoholism, HTn, HLP, DM , CKD 3, who presented from [facility] with a fall while being detoxed. 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 risks were d/w whim by Dr. Clements.
--- NOTE | 2019-05-01 15:30 | PN ---
Progress Note (short form) - Note Progress Note: Patient vomited after breakfast this morning No focal complaints. Spoke to sales management intern Dr. Clements regarding this I spoke to the patient. He did not want to get into bed, refusing physical exam and said he did not want to stay. If he agrees, can stay and have upper GI series performed for further evaluation of upper GI tract Problem List - Problems (1) Vomiting Code(s): R11.10 - VOMITING, UNSPECIFIED (2) Anemia Code(s): D64.9 - ANEMIA, UNSPECIFIED Qualifiers: Anemia type: unspecified type Qualified Code(s): D64.9 - Anemia, unspecified (3) Hernia Code(s): K46.9 - UNSPECIFIED ABDOMINAL HERNIA WITHOUT OBSTRUCTION OR GANGRENE
--- NOTE | 2019-05-01 15:49 | PN ---
Progress Note (short form) - Note Progress Note: Patient is AO X3 and was made aware of the risks of not undergoing an upper GI series and the benefits of doing the procedure were discussed with the patient. However, patient refused medical care and signed out AMA.
== END 2019-05-01 15:53 | disposition left against medical advice (07) | DRG 894 ==
LOC: JER 00:06 → JERBED 03:43 → J8W 08:37 → JERBED 08:52 → J8W 09:20
PROVIDERS: ADMIT Internal Medicine; ATTEND Internal Medicine
DX: F10.230 Alcohol dependence with withdrawal, uncomplicated (principal); E87.2 Acidosis; I77.4 Celiac artery compression syndrome; I13.0 Hypertensive heart and chronic kidney disease with heart failure and stage 1 through stage 4 chronic kidney disease, or unspecified chronic kidney disease; F17.210 Nicotine dependence, cigarettes, uncomplicated; E11.9 Type 2 diabetes mellitus without complications; E78.00 Pure hypercholesterolemia, unspecified; I10 Essential (primary) hypertension; E66.9 Obesity, unspecified; G93.89 Other specified disorders of brain; D50.9 Iron deficiency anemia, unspecified; E11.22 Type 2 diabetes mellitus with diabetic chronic kidney disease; N18.9 Chronic kidney disease, unspecified; K59.00 Constipation, unspecified; D37.1 Neoplasm of uncertain behavior of stomach; D40.10 Neoplasm of uncertain behavior of unspecified testis
CPT/HCPCS: 36415; 70450-TC; 70551-TC; 74176-TC; 80048; 80053; 80307; 82550; 82553; 82607; 82728; 82746; 82962; 83036; 83540; 83550; 83605; 83735; 84484; 85025; 85610; 85730; 93005; 93010; 93306-TC; 97116-GP; 97161-GP; 99285-25; J1644; J7030; Q9967